=== PATIENT | female | born 1950 | race Caucasian/White ===

== ENCOUNTER 2016-09-18 19:06 | Inpatient (IN) ==
[2016-09-18] MEDS ORDERED: LACTATED RINGERS 1,000 ML IV ONE ×2 (19:17→19:47)
[2016-09-18 19:37] LABS: Basophils % 0.2 % (0.0-0.8); Eosinophils % 0.3 % (0.00-10.9); Hematocrit 29.3 VOL% (35.7-47.0); Hemoglobin 9.5 GM/DL (12.0-16.0); Immature Granulocytes % 0.7 %; Immature Granulocytes Absolute 0.11 #; Lymphocytes # 0.9 10*3/uL (1.4-4.0); Lymphocytes % 5.8 % (21.3-54.2); Mean Corpuscular HGB Conc 32.4 GM/DL (32-36); Mean Corpuscular Hemoglobin 28 PG (27-34); Mean Corpuscular Volume 85.7 FL (87-102); Monocytes # 0.3 10*3/uL (0.11-0.8); Monocytes % 2.1 % (1.7-12.7); Neutrophils # 13.4 10*3/uL (1.4-7.4); Neutrophils % 90.9 % (38.7-73.9); Platelet Count 754 T/CUMM (130-400); Red Blood Count 3.42 MC/CUMM (3.8-5.5); Red Cell Distribution Width 19.4 % (9.3-17.3); White Blood Count 14.8 T/CUMM (4-12)
--- NOTE | 2016-09-18 19:37 | Emergency Department Note ---
Arrival - Arrival Chief Complaint: Altered Mental Status Stated Complaint: AMS ED Nursing Triage Note: Patient to room via ems. Ems was called for altered mental status. Patient's last known well time was at 8am. Patients tried to wake her up at 12 and she just moaned, at 4 she had the right gaze with no speech. Mode of Arrival: Stretcher Time Seen by Provider: 09/18/16 19:14 - History of Present Illness HPI Narrative: Patient's last known well time was 8 AM. She was found by her family around noon and was fairly unresponsive. Thought to be low glucose and treated with oral glucose but patient continued to be unresponsive and was brought to the hospital by EMS. Patient cannot give any history due to her condition. She was recently admitted for urosepsis. Allergies/Adverse Reactions: Allergies Allergy/AdvReac Type Severity Reaction Status Date / Time Zolpidem [From Ambien] AdvReac Intermediate Anxiety/Con Verified 09/18/16 19:18 fusion silk tape AdvReac Intermediate Redness of Uncoded 09/18/16 19:18 Skin Home Medications: Home Medications Medication Instructions Recorded Confirmed Type Sodium Bicarbonate 650 mg PO BID 10/25/14 08/04/16 History Amitriptyline [Elavil] 10 mg PO BEDTIME 08/04/16 08/04/16 History Atorvastatin [Lipitor] 40 mg PO DAILY 08/04/16 08/04/16 History Escitalopram [Lexapro] 20 mg PO DAILY 08/04/16 08/04/16 History HYDROcodone/ACETAMIN 7.5-325 7.5 mg PO Q4HR PRN 08/04/16 08/04/16 History [[place] 7.5-325] levETIRAcetam [Keppra] 500 mg PO BID 08/04/16 08/04/16 History Acetaminophen Tab [Tylenol Tab] 325 mg PO Q4H PRN #0 tablet 08/07/16 Rx Albuterol/Ipratropium Neb [Duoneb] 3 ml RESP TX RT Q6H PRN #0 08/07/16 Rx Budesonide/Formoterol 160-4.5 2 puff INH BID inhaler 08/07/16 Rx [Symbicort 160-4.5] Clotrimazole 1% Cream [Lotrimin 1% 1 applic TOP BID applic 08/07/16 Rx Cream] Dextrose 50% [D50] 12.5 gm IV PRN PRN #0 vial 08/07/16 Rx Dextrose 50% [D50] 25 gm IV PRN PRN #0 vial 08/07/16 Rx Furosemide Tab [Lasix Tab] 20 mg PO BID DIURETIC tablet 08/07/16 Rx Heparin Lock Flush 50 units IV PRN PRN #0 syringe 08/07/16 Rx Insulin Aspart Prot/Asp 70/30 5 unit SUBCUT AC SUPPER unit 08/07/16 Rx [NovoLOG Mix 70/30] Insulin Aspart Prot/Asp 70/30 8 unit SUBCUT AC BREAKFAST unit 08/07/16 Rx [NovoLOG Mix 70/30] Insulin Regular [HumuLIN R] See Protocol SUBCUT ACHS unit 08/07/16 Rx Meropenem [Merrem] 1,000 mg IV Q12H vial 08/07/16 Rx Metoprolol Tartrate Tab [Lopressor 25 mg PO BID tablet 08/07/16 Rx Tab] Micafungin [Mycamine] 100 mg IV Q24H vial 08/07/16 Rx Nitroglycerin Sl Tab [Nitrostat] 0.4 mg SL DIRECTED PRN #0 tablet 08/07/16 Rx Ondansetron Inj [Zofran Inj] 4 mg IV Q4H PRN #0 vial 08/07/16 Rx Pantoprazole Tab [Protonix Tab] 40 mg PO BID tablet 08/07/16 Rx Theophylline ER Cap (24 Hr) 200 mg PO BID W/MEALS capsule 08/07/16 Rx [Adithya-24] Review of System - Review of System Constitutional: Present: as per HPI Eyes: Present: as per HPI Head/Ears/Nose/Throat: Present: see HPI Respiratory: Present: as per HPI Cardiovascular: Present: as per HPI Gastrointestinal: Present: as per HPI Genitourinary female: Present: as per HPI Musculoskeletal: Present: as per HPI Skin: Present: as per HPI Neurological: Present: as per HPI Psychiatric: Present: as per HPI Endocrine: Present: as per HPI Hematological/Lymphatic: Present: as per HPI Allergic/Immunologic: Present: as per HPI Medical,Surgical,& Family Hx - Medical History Cardio: History of: CHF, CAD, Hypertension, PVD, Cardiovascular Problems Psychological: History of: Depression No history of: Psychiatric Problems Neurology: History of: Cerebrovascular Accident No history of: Seizures, Neurological Problems HEENT: No history of: Eye Problem, Dental Problems Endocrine: History of: Diabetes Mellitus (IDDM), Diabetes Mellitus (NIDDM) Rheumatology: No history of;: Rheumatological Problems Respiratory: History of: COPD, Respiratory Problems Renal: History of: Renal Failure (ureteral stricture and hydronephrosis, stent change every 6 months), Renal Problems (CKD stage IV) Genitourinary: History of: Recurring Urinary Tract Infections Gastrointestinal: History of: GERD, GI Problems (ABDOMINAL AORTIC ANEURYSM) No history of: Diverticulitis/ Diverticulosis, Gastrointestinal Bleed, Hepatitis Musculoskeletal: History of: Amputation (LEFT AKA) Hematology: No history of: Blood Disorders Reproductive: No history of: Reproductive Problems Other: History of: Anesthesia Reactions (PT STATES SHE WAS HARD TO AWAKE AND SPENT 15 DAYS IN ICU.) - Surgical History Cardiac Surgeries: Sugical HX of: Cardiac Catheterization, Cardiac Surgery Abdominal Surgeries: Surgical HX of: Abdominal Surgery (vascular bypass surgery) Reproductive Surgeries: Surgical HX of;: Section (X 1), Gynecologic Surgery, Tubal Ligation - Family History Family History: Reports;: Family Cancer, Family Heart Disease - Social History Smoking Status: Smoker, status unknown Frequency of Alcohol Use: None Type of Drug Use: None Exam Vital Signs: Vital Signs Temperature 97.2 F L 09/18/16 19:07 Pulse Rate 74 09/18/16 20:01 Respiratory Rate 18 09/18/16 20:01 Blood Pressure 91/52 09/18/16 20:01 O2 Sat by Pulse Oximetry 99 09/18/16 20:01 - General Exam limited due to: ALOC General appearance: alert, lethargic - Head Head exam: Present: atraumatic - Eye Eye exam: Present: normal appearance, PERRL - ENT ENT exam: Present: normal exam - Neck Neck exam: Present: normal inspection - Chest Chest inspection: Present: normal inspection - Respiratory Respiratory exam: Present: normal lung sounds bilaterally. Absent: accessory muscle use, prolonged expiratory phase - Cardiovascular Cardiovascular exam: Present: regular rate, normal rhythm - Abdominal Exam Abdominal exam: Present: soft, hypoactive bowel sounds. Absent: distention, tenderness, guarding - Rectal Exam Rectal exam: Present: normal inspection. Absent: mass - Female exam ED: Present: deferred - Extremities Exam Extremities exam: Present: normal inspection, other (prior left above knee amputation) - Back Exam Back exam: Present: normal inspection - Skin Skin exam: Present: warm, dry Course Course Narrative: This patient was evaluated with lab work as well as urinalysis and chest x-ray as well as head CT. She had acidosis with urinary tract infection on her urinalysis but her lactic acid was normal. She was discussed with hospitalist who agreed to see her to admit her to the ICU for urosepsis treatment. She did not require intubation in the ER and actually did wake up some with IV fluid administration of antibiotics. Results - Labs CBC & BMP: 09/18/16 19:28 09/18/16 19:28 Disposition Clinical Impression: Sepsis, Urinary tract infection Case discussed with: patient, patient's family Disposition: Still a Patient Condition: Critical Instructions: Sepsis (GEN) Time of Disposition: 20:24
[2016-09-18 19:47] LABS: INR 1.4; PT Patient Result 14.7 SECS; Partial Thromboplastin Time 36.6 SECS (0-40)
[2016-09-18] MEDS ORDERED: VANCOMYCIN INJ 1,000 MG in SODIUM CHLORIDE 0.9% 250 ML IV STA (19:48)
[2016-09-18] MEDS ORDERED: FLUCONAZOLE INJ 200 MG in PREMIX 1 EACH IV ONE (19:48)
--- NOTE | 2016-09-18 19:48 | XRay Report ---
XR chest 1V portable Indication: Altered mental status. Chest one view: Comparison 08/01/2016. Postoperative changes median sternotomy, borderline cardiomegaly and calcified atheromatous disease are stable. Lung volumes are decreased when compared to prior examination with mild central pulmonary vascular crowding and atelectasis. However, no infiltrate or edema shown. Impression: Pulmonary hypoinflation and borderline cardiomegaly. PROCEDURE INTERPRETED AT [facility] DEPARTMENT OF RADIOLOGY Final Report Signed by: Kade Montgomery M.D.
--- NOTE | 2016-09-18 19:54 | CT Report ---
CT head/brain wo con Indication: Altered mental status. CT BRAIN WITHOUT CONTRAST DLP: 998 mGy*cm. One or more of the following dose reduction techniques was used: Automated exposure control, adjustment of the mA and/or kV according the patient size, or use of iterative reconstruction techniques. Comparison: 08/01/2016. Date of admission: 09/18/2016. Technique: Axial noncontrast CT images of the brain were obtained. Findings: No acute hemorrhage, mass or mass effect. Generalized atrophy and patchy periventricular white matter hypodensity is present throughout both convexities. Old infarct left occipital lobe is stable. Cortical araujo-white junction and structures of the basal ganglia are well-defined. No bone lesions are shown. Internal auditory canals are symmetric. Visualized sinuses and mastoid air cells are clear. Impression: No acute intracranial pathology. Generalized atrophy and changes consistent with microvascular disease. Old left occipital infarct, stable. PROCEDURE INTERPRETED AT [facility] DEPARTMENT OF RADIOLOGY Final Report Signed by: Kade Montgomery M.D.
[2016-09-18 19:59] LABS: Apearance,Urine CLOUDY (Clear); Bacteria,Urine Few /HPF (Few); Bilirubin,Urine Negative (Negative); Blood, Urine Moderate mg/dL (Negative); Glucose,Urine (UA) Negative (Negative); Ketones,Urine Negative (Negative); Nitrite,Urine Negative (Negative); Protein,Urine 30 MG/DL; RBC,Urine 90 /HPF (0-4); Renal Epithelial Cells,Urine Occasional /HPF (<1); Squamous Epithelial Cell,Urine Occasional /HPF (0-10); Urine Color Yellow (Yellow); Urine Specific Gravity 1.004 (1.001-1.035); Urine Urobilinogen < 2.0 EU/DL (0.2-1.0); WBC,Urine 482 /HPF (0-6)
[2016-09-18 20:05] LABS: Alanine Aminotransferase < 6 U/L (13-56); Albumin 1.4 G/DL (3.4-5.0); Alkaline Phosphatase 177 U/L (45-117); Aspartate Amino Transferase 13 U/L (0-37); Bilirubin,Total < 0.39 MG/DL (0.2-1.0); Blood Urea Nitrogen 52 MG/DL (7-18); Glucose 130 MG/DL (74-106); Osmolality,Calculated 311.1 MOS/KG (273-304); Sodium 149 MMOL/L (136-145); Total Protein 5.6 G/DL (6.4-8.3)
[2016-09-18 20:08] LABS: Calcium 5.1 MG/DL (8.5-10.1); Potassium 1.9 MMOL/L (3.5-5.1)
[2016-09-18 20:09] LABS: Lactic Acid 1.2 MMOL/L (0.4-2.0)
[2016-09-18] MEDS ORDERED: CALCIUM GLUCONATE 2,000 MG in SODIUM CHLORIDE 0.9% 100 ML IV ONE (20:12)
[2016-09-18 20:13] LABS: Troponin I Only 0.045 NG/ML (0.00-0.045)
[2016-09-18 20:15] LABS: Lymphocytes 7 % (20-55); Segmented Neutrophils 91 % (50-85); Total Cells Counted 100
[2016-09-18 20:16] LABS: ABG Base Excess -9.4 MMOL/L (-2.5-2.5); ABG HCO3 15.5 MMOL/L (20-26); ABG Oxygen Saturation 97.4 % (95-100); ABG PH 7.331 (7.35-7.45); ABG PO2 125.4 MM HG (80-95); ABG TCO2 16.4 MMOL/L (23-27); Allen Test Positive
[2016-09-18 20:16] LABS: Burr Cells Few; Ovalocytes Few; Platelet Estimate Increased; Poikilocytosis 1+; Tear Drop Cells Slight
[2016-09-18] MEDS ORDERED: VANCOMYCIN 1,000 MG VIAL ONE (20:17)
[2016-09-18] MEDS ORDERED: POTASSIUM CHLORIDE RIDER 100 ML IV ONE (20:17)
[2016-09-18 20:20] LABS: Ammonia 27 UMOL/L (11-32)
[2016-09-18] MEDS: POTASSIUM CHLORIDE RIDER 10 MEQ in PREMIX 1 EACH IV SCH ×3 (20:33→23:39)
--- NOTE | 2016-09-18 20:54 | Event Note ---
Preoperative diagnosis Hypotension with inadequate venous access Postoperative diagnosis Same Procedures performed Right internal jugular central line placement Ultrasound guidance and interpretation of images Findings The right internal jugular vein was compressible and was accessed on first stick with venous nonpulsatile blood return. Wire placement was confirmed with ultrasound and the vein was accessed under ultrasound guidance. The catheter was placed at 15 centimeters at the skin level. Complications None apparent Specimen None Anesthesia Local 10 cc lidocaine Indication Hypotension with inadequate venous access Description of procedure The patient was placed in supine position in his ICU bed. The neck was prepped with chlorhexidine and draped sterilely. Timeout was called. Ultrasound was used to identify the vascular structures in the right neck. The jugular vein is compressible. Local anesthetic was administered under ultrasound guidance. The vein was accessed with a needle on the first attempt under ultrasound guidance. Venous nonpulsatile blood return was obtained. A wire was passed easily into the venous system and placement was confirmed again with ultrasound. A skin incision was made alongside the wire and the dilator was placed over the wire. Seldinger technique was used to place a triple-lumen catheter and it was threaded over the wire up to 15 centimeters at the skin. The catheter was sewn in place at this location. All 3 lm returned blood easily and were flushed with saline. The catheter was sewn in place with 3-0 silk sutures in a Biopatch sterile dressing was placed with Tegaderm. Postoperative plan Chest x-ray
--- NOTE | 2016-09-18 21:06 | Hospitalist History & Physical ---
Assessment and Plan (1) Severe sepsis Status: Acute Assessment and plan: The patient presents with unresponsiveness acute on chronic kidney injury obvious urinary tract infection. I believe bacteremia or funguria associated with urinary tract infection is a possibility. Patient is hypotensive and will be admitted to the intensive care unit. Currently she is receiving some lingers lactate for isotonic buffered fluid resuscitation. Will respond to the blood pressure response to this. Blood pressure does not go up then pressors will be started. Patient is being admitted to the intensive care unit. Current Visit: Yes (2) Hyperosmolar non-ketotic state in patient with type 2 diabetes mellitus Status: Acute Assessment and plan: After receiving isotonic fluids patient will be switched to free water infusion with quarter normal saline for the next 18 hours around the fluid at 120 mL/h. Because this was started after blood pressure stabilized. Will discontinue lactated Ringer's at that point. Patient is a diabetic I believe we cannot use D5W based fluid optimally without causing hypoglycemia. Current Visit: Yes (3) Kicig-bi-cwkvmqk kidney injury Status: Acute Assessment and plan: This could be related to the acute infection but also acute tubular necrosis given hypotension. She does look a little bit dehydrated. Coronary consultation with nephrology to evaluate and recommend on this issue. Repeat BMP and magnesium in the morning. Current Visit: Yes (4) Urinary tract infection Status: Chronic Current Visit: Yes (5) Hypokalemia Status: Acute Assessment and plan: Supplement potassium per protocol using IV potassium chloride. Repeat BMP and magnesium tomorrow. Current Visit: No (6) Septic shock Status: Acute Assessment and plan: Patient is started on antibiotics empirically. Because of prior history of staphylococcal urinary tract infection patient will be given vancomycin 1. Check vancomycin random levels tomorrow. Also put the patient on meropenem 500 mg IV every 12 hours. Because of prior fungal infections patient should be put on fluconazole 1 as already ordered in the emergency room but subsequently put the patient on micafungin 100 mg IV every 24 hours; follow blood culture reports. Good consultation with infectious disease to see the patient in the morning. Lactic acid has been ordered. If elevated will have to repeat a level 6 hours later. Current Visit: Yes History of Present Illness Chief complaint: Unresponsive History of present illness: Ms. Flores is a 66 year old female brought to the emergency room unresponsive after being found by her family around noon. The thought to patient had a low glucose and give her some oral glucose without any response. Last time family noted to be okay was around 8:00 in the morning today. No history of trauma has history of amputation of left lower extremity history of prior sepsis starting about December of last year through the early part of this year. In December she did have methicillin sensitive staph aureus in the urine as well as Edilma tropicalis. Her urine looks quite pyuric today. Specimen has been sent to the laboratory for culture and urinalysis. Unfortunately Gram stain cannot be obtained at this time. Patient cannot given a history daughter-in- law at the bedside does not know much about her; I am informed that the patient does have a daughter who is a nurse. Patient lives at home not certain to me if there is home health involved in her care. She is a diabetic on insulin dose does take Keppra suggesting that she does have history of seizures as mentioned that she was on Mycamine at one point in July of note is certain if this medication was been continued through now. Home Medications Medication Instructions Recorded Confirmed Type Sodium Bicarbonate 650 mg PO BID 10/25/14 08/04/16 History Amitriptyline [Elavil] 10 mg PO BEDTIME 08/04/16 08/04/16 History Atorvastatin [Lipitor] 40 mg PO DAILY 08/04/16 08/04/16 History Escitalopram [Lexapro] 20 mg PO DAILY 08/04/16 08/04/16 History HYDROcodone/ACETAMIN 7.5-325 7.5 mg PO Q4HR PRN 08/04/16 08/04/16 History [[place] 7.5-325] levETIRAcetam [Keppra] 500 mg PO BID 08/04/16 08/04/16 History Acetaminophen Tab [Tylenol Tab] 325 mg PO Q4H PRN #0 tablet 08/07/16 Rx Albuterol/Ipratropium Neb [Duoneb] 3 ml RESP TX RT Q6H PRN #0 08/07/16 Rx Budesonide/Formoterol 160-4.5 2 puff INH BID inhaler 08/07/16 Rx [Symbicort 160-4.5] Clotrimazole 1% Cream [Lotrimin 1% 1 applic TOP BID applic 08/07/16 Rx Cream] Dextrose 50% [D50] 12.5 gm IV PRN PRN #0 vial 08/07/16 Rx Dextrose 50% [D50] 25 gm IV PRN PRN #0 vial 08/07/16 Rx Furosemide Tab [Lasix Tab] 20 mg PO BID DIURETIC tablet 08/07/16 Rx Heparin Lock Flush 50 units IV PRN PRN #0 syringe 08/07/16 Rx Insulin Aspart Prot/Asp 70/30 5 unit SUBCUT AC SUPPER unit 08/07/16 Rx [NovoLOG Mix 70/30] Insulin Aspart Prot/Asp 70/30 8 unit SUBCUT AC BREAKFAST unit 08/07/16 Rx [NovoLOG Mix 70/30] Insulin Regular [HumuLIN R] See Protocol SUBCUT ACHS unit 08/07/16 Rx Meropenem [Merrem] 1,000 mg IV Q12H vial 08/07/16 Rx Metoprolol Tartrate Tab [Lopressor 25 mg PO BID tablet 08/07/16 Rx Tab] Micafungin [Mycamine] 100 mg IV Q24H vial 08/07/16 Rx Nitroglycerin Sl Tab [Nitrostat] 0.4 mg SL DIRECTED PRN #0 tablet 08/07/16 Rx Ondansetron Inj [Zofran Inj] 4 mg IV Q4H PRN #0 vial 08/07/16 Rx Pantoprazole Tab [Protonix Tab] 40 mg PO BID tablet 08/07/16 Rx Theophylline ER Cap (24 Hr) 200 mg PO BID W/MEALS capsule 08/07/16 Rx [Adithya-24] Allergies Allergy/AdvReac Type Severity Reaction Status Date / Time Zolpidem [From Ambien] AdvReac Intermediate Anxiety/Con Verified 09/18/16 19:18 fusion silk tape AdvReac Intermediate Redness of Uncoded 09/18/16 19:18 Skin Medical,Surgical,& Family Hx - Medical History Cardio: History of: CHF, CAD, Hypertension, PVD, Cardiovascular Problems Psychological: History of: Depression No history of: Psychiatric Problems Neurology: History of: Cerebrovascular Accident No history of: Seizures, Neurological Problems HEENT: No history of: Eye Problem, Dental Problems Endocrine: History of: Diabetes Mellitus (IDDM), Diabetes Mellitus (NIDDM) Rheumatology: No history of;: Rheumatological Problems Respiratory: History of: COPD, Respiratory Problems Renal: History of: Renal Failure (ureteral stricture and hydronephrosis, stent change every 6 months), Renal Problems (CKD stage IV) Genitourinary: History of: Recurring Urinary Tract Infections Gastrointestinal: History of: GERD, GI Problems (ABDOMINAL AORTIC ANEURYSM) No history of: Diverticulitis/ Diverticulosis, Gastrointestinal Bleed, Hepatitis Musculoskeletal: History of: Amputation (LEFT AKA) Hematology: No history of: Blood Disorders Reproductive: No history of: Reproductive Problems Other: History of: Anesthesia Reactions (PT STATES SHE WAS HARD TO AWAKE AND SPENT 15 DAYS IN ICU.) - Surgical History Cardiac Surgeries: Sugical HX of: Cardiac Catheterization, Cardiac Surgery Abdominal Surgeries: Surgical HX of: Abdominal Surgery (vascular bypass surgery) Reproductive Surgeries: Surgical HX of;: Section (X 1), Gynecologic Surgery, Tubal Ligation - Family History Family History: Reports;: Family Cancer, Family Heart Disease - Social History Smoking Status: Smoker, status unknown Frequency of Alcohol Use: None Type of Drug Use: None ROS unobtainable: other (Patient is totally unresponsive) Review of systems: 12 system assessment by inspection was done. Significant for the chief complaint history of presenting illness and past medical history. Exam - Constitutional Vitals: Period Temp Pulse Resp BP Sys/Faith Pulse Ox Last 24 Hr 97.2 F-97.2 F 69-91 16-20 85-93/39-58 98-100 General appearance: over weight - Head Head exam: Present: normocephalic, atraumatic - Eye Eye exam: Present: other (Patient is totally unresponsive/comatose) Pupils: Present: ANUSHA - ENT ENT exam: Present: normal exam, other (No oral lesions) - Neck Neck exam: Present: other (Neck is supple midline trachea no adenopathy no JVD) - Respiratory Respiratory exam: Present: other (Patient has spontaneous respirations poor inspiratory force but I can hear lungs on both sides) - Cardiovascular Cardiovascular exam: Present: regular rate and rhythm, other (EKG was sinus control rate about 83 beats a minute preserved MA interval nonspecific ST-T abnormality she does have P-mitrale) - GI/Abdominal GI/Abdominal exam: Present: normal bowel sounds, soft - Extremities Exam Extremities exam: Present: other (Patient cannot move she does have an AKA on the left side will not respond to commands) - Neurological Exam Neurological exam: Present: other (Patient is unresponsive I cannot assess neurologic modalities effectively) - Psychiatric Psychiatric exam: Present: other (Unresponsive) - Skin Skin exam: Present: normal color, warm, dry Results - Labs CBC & BMP: 09/18/16 19:28 09/18/16 19:28 Lab Results: I have reviewed the past 24 hour labs (Noted profound hypokalemia leukocytosis creatinine of 4.6 hyponatremia 149 glucose of 130 obviously hyperosmolar with a BUN of 52)
--- NOTE | 2016-09-18 21:34 | Ultrasound Report ---
US renal Bilateral Indication: Edilma in urine. Ultrasound kidneys: Grayscale and color Doppler imaging of both kidneys obtained. Both kidneys demonstrate severe hydronephrosis which represents a progression from the moderate hydronephrosis present on 07/25/2016. Right kidney is 124 x 72 x 69 mm. There is a 13 x 17 x 12 mm cyst at the upper pole. Left kidney is 150 x 74 x 82 mm. Color Doppler flow both renal luis fernando noted. Impression: Since 07/25/2016, worsening bilateral hydronephrosis. PROCEDURE INTERPRETED AT [facility] DEPARTMENT OF RADIOLOGY Final Report Signed by: Kade Montgomery M.D.
--- NOTE | 2016-09-18 21:35 | XRay Report ---
XR chest 1V portable Indication: Central line placement. Chest one view: Comparison 09/18/2016 shows a new right IJ central line, tip at the RA-SVC junction. Cardiomegaly, postoperative changes median sternotomy and pulmonary hypoinflation are stable. No pneumothorax. Impression: Adequate placement of central line. PROCEDURE INTERPRETED AT [facility] DEPARTMENT OF RADIOLOGY Final Report Signed by: Kade Montgomery M.D.
[2016-09-18] MEDS ORDERED: DEXTROSE 50% 25 GM/50 ML VIAL IV PRN (21:59)
[2016-09-18] MEDS ORDERED: GLUCAGON 1 MG VIAL IM PRN (21:59)
[2016-09-18] MEDS ORDERED: SODIUM CHLORIDE 23.4% CONC INJ 38.5 MEQ in STERILE WATER INJ 1,000 ML IV SCH (22:00)
[2016-09-18] MEDS: DEXTROSE 5% NACL 0.22% 1,000 ML IV SCH (22:23)
[2016-09-18] MEDS: MEROPENEM 500 MG in SODIUM CHLORIDE 0.9% 100 ML IV SCH (22:31)
[2016-09-18 22:37] LABS: Basophils % 0.1 % (0.0-0.8); Eosinophils % 0.1 % (0.00-10.9); Hematocrit 24.6 VOL% (35.7-47.0); Hemoglobin 8.1 GM/DL (12.0-16.0); Immature Granulocytes Absolute 0.16 #; Lymphocytes # 1.3 10*3/uL (1.4-4.0); Lymphocytes % 8.4 % (21.3-54.2); Mean Corpuscular HGB Conc 32.9 GM/DL (32-36); Mean Corpuscular Hemoglobin 28 PG (27-34); Mean Corpuscular Volume 85.1 FL (87-102); Mean Platelet Volume 8.9 FL (9.6-12.0); Monocytes # 0.2 10*3/uL (0.11-0.8); Monocytes % 1.4 % (1.7-12.7); Neutrophils # 13.7 10*3/uL (1.4-7.4); Platelet Count 637 T/CUMM (130-400); Red Blood Count 2.89 MC/CUMM (3.8-5.5); Red Cell Distribution Width 19.4 % (9.3-17.3); White Blood Count 15.4 T/CUMM (4-12)
[2016-09-18] MEDS: NOREPINEPHRINE 8 MG in SODIUM CHLORIDE 0.9% 242 ML IV SCH (23:07)
[2016-09-18 23:08] LABS: Magnesium 0.8 MG/DL (1.8-2.4); Osmolality,Calculated 304.3 MOS/KG (273-304)
[2016-09-18 23:10] LABS: Calcium 5.7 MG/DL (8.5-10.1); Potassium 2.3 MMOL/L (3.5-5.1)
[2016-09-18] MEDS ORDERED: POTASSIUM CHLORIDE RIDER 20 MEQ in PREMIX 1 EACH IV PRN (23:29)
[2016-09-18 23:46] LABS: Lymphocytes 4 % (20-55); Platelet Estimate Increased; Segmented Neutrophils 94 % (50-85); Total Cells Counted 100
[2016-09-18 23:54] LABS: Hypochromasia 1+; Microcytosis 2+
[2016-09-18 23:55] LABS: Burr Cells Slight
[2016-09-19] MEDS: POTASSIUM CHLORIDE RIDER 10 MEQ in PREMIX 1 EACH IV SCH ×3 (00:40→02:27)
[2016-09-19 04:30] LABS: Basophils % 0.1 % (0.0-0.8); Eosinophils % 0.1 % (0.00-10.9); Hematocrit 22.9 VOL% (35.7-47.0); Hemoglobin 7.4 GM/DL (12.0-16.0); Immature Granulocytes % 0.8 %; Immature Granulocytes Absolute 0.11 #; Lymphocytes # 1.8 10*3/uL (1.4-4.0); Lymphocytes % 12.2 % (21.3-54.2); Mean Corpuscular HGB Conc 32.3 GM/DL (32-36); Mean Corpuscular Hemoglobin 28 PG (27-34); Mean Corpuscular Volume 86.7 FL (87-102); Monocytes # 0.6 10*3/uL (0.11-0.8); Monocytes % 3.9 % (1.7-12.7); Neutrophils # 11.8 10*3/uL (1.4-7.4); Neutrophils % 82.9 % (38.7-73.9); Platelet Count 558 T/CUMM (130-400); Red Blood Count 2.64 MC/CUMM (3.8-5.5); Red Cell Distribution Width 19.4 % (9.3-17.3); White Blood Count 14.3 T/CUMM (4-12)
[2016-09-19 05:02] LABS: Hypochromasia 1+; Lymphocytes 11 % (20-55); Microcytosis 1+; Platelet Estimate Increased; Segmented Neutrophils 84 % (50-85); Total Cells Counted 100
[2016-09-19 05:03] LABS: Burr Cells Few
[2016-09-19 05:29] LABS: Osmolality,Calculated 304.7 MOS/KG (273-304); Potassium 2.7 MMOL/L (3.5-5.1)
[2016-09-19 05:31] LABS: Calcium 5.5 MG/DL (8.5-10.1)
[2016-09-19] MEDS: DEXTROSE 5% NACL 0.22% 1,000 ML IV SCH (06:16)
[2016-09-19] MEDS ORDERED: POTASSIUM CHLORIDE RIDER 10 MEQ in PREMIX 1 EACH IV PRN ×2 (06:29→06:36)
[2016-09-19] MEDS ORDERED: POTASSIUM CHLORIDE RIDER 20 MEQ in PREMIX 1 EACH IV ONE (06:29)
--- NOTE | 2016-09-19 06:35 | EKG Report ---
Stationary ECG Study [facility] ER Test Date: 09/18/2016 7:17:55 PM Pat Name: SUSAN EVANS Department: Room: 124 Gender: F [employer] Installer: : 1950 Requested by: Vinny Davis Order Number: [id number] Reading MD: JIMMY LEWIS Intervals [place] Rate: 83 P: -29 CT: 142 QRS: 18 QRSD: 104 T: 35 QT: 350 QTc: 389 Interpretive Statements SINUS RHYTHM WITH OCCASIONAL SUPRAVENTRICULAR PREMATURE COMPLEXES NONSPECIFIC RIGHT VENTRICULAR CONDUCTION DELAY Electronically Signed On 09-19-16 20:44:41 CDT by JIMMY LEWIS [email or web address]
[2016-09-19] MEDS: POTASSIUM CHLORIDE RIDER 20 MEQ in PREMIX 1 EACH IV PRN ×2 (06:44→22:20)
[2016-09-19] MEDS ORDERED: CALCIUM GLUCONATE 2,000 MG in SODIUM CHLORIDE 0.9% 100 ML IV ONE (07:00)
[2016-09-19] MEDS ORDERED: SODIUM CHLORIDE 0.9% 250 ML IV PRN (08:29)
[2016-09-19] MEDS ORDERED: MAGNESIUM SULF RIDER 2 GM in PREMIX 1 EACH IV ONE (09:00)
[2016-09-19] MEDS ORDERED: CLOTRIMAZOLE/BETAMETHASONE LOTION 30 ML BOTTLE TOP SCH (09:00)
[2016-09-19] MEDS: MEROPENEM 500 MG in SODIUM CHLORIDE 0.9% 100 ML IV SCH ×2 (09:01→21:49)
[2016-09-19] MEDS: SODIUM CHLORIDE 0.45% 1,000 ML IV SCH ×2 (09:05→18:34)
--- NOTE | 2016-09-19 10:59 | Infectious Disease Consult ---
Assessment and Plan (1) Diarrhea Status: Acute Assessment and plan: She has been in and out of hospital for the past several months on antibiotic therapy and I am concerned about the possibility of C. difficile. Recommendations: Check stool for C. difficile toxin 3 samples. Current Visit: Yes (2) Candidal intertrigo Status: Acute Assessment and plan: This is quite severe Edilma intertrigo again due to her extensive antibiotic exposure over the past several months. Recommendations: 1. Instead of clotrimazole with betamethasone, I am going to give a straight clotrimazole cream 2. She is already on micafungin because of past history of Edilma tropicalis complicated UTI; we will leave this on follow-up cultures on the urine. De- escalate to fluconazole if able. Current Visit: Yes (3) [id number] kidney injury Status: Acute Assessment and plan: Probably multifactorial including worsening hydronephrosis and also dehydration from the diarrhea. Current Visit: Yes (4) Septic shock Status: Acute Assessment and plan: She is hypotensive and its could be very well from sepsis given leukocytosis and probable urinary tract infection. There is also the possibility of C. difficile infection. Alternatively the hypotension could be from volume depletion related to her prolonged diarrhea. Recommendations: Continue current empiric antibiotic therapy and follow-up pending culture results. Thank you very much for the consult. Will follow. Current Visit: Yes (5) Urinary tract infection Status: Chronic Assessment and plan: She has significant pyuria but urine culture negative to date. 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 If Edilma tropicalis is isolated again I am going to have lab do susceptibility testing to see if we can get her on fluconazole. Current Visit: Yes (6) Uropathy, obstructive Status: Acute Assessment and plan: She has worsening hydronephrosis. No stents present at the moment. She may end up on dialysis soon. Current Visit: No (7) Diabetes mellitus Status: Chronic Current Visit: No Qualifiers: Diabetes mellitus type: type 2 Diabetes mellitus complication status: with kidney complications (8) Hypertension Status: Chronic Current Visit: No Qualifiers: Hypertension type: essential hypertension Qualified Code(s): I10 - Essential (primary) hypertension History of Present Illness Chief complaint: Severe sepsis History of present illness: History was obtained from reviewing her extensive records as the patient is a very poor historian. Ms. Flores is a 66 year old female, With multiple comorbidities including diabetes, chronic renal failure, bilateral ureteric strictures with history of stents in situ because of hydronephrosis. She was in hospital about a month ago with DKA and sepsis felt to be due to urinary tract infection. Edilma tropicalis was cultured. She was treated with micafungin and at the time she had the stents removed. The patient decided to not have the stents replaced and instead accepted the fact that she was probably going to end up on dialysis. After she completed IV micafungin at specialty she was sent home and apparently was doing relatively okay but yesterday she was found unresponsive at home at about midday and her blood sugar was about 30. The only history the patient was able to give me today is that she has been having diarrhea for the past month. The patient was hypotensive on presentation requiring admission to ICU for vasopressors. She has not been having such severe diarrhea according to the nurse but stool is quite soft. She has not been having fever but has significant leukocytosis and I am asked to assist with management. Home Medications Medication Instructions Recorded Confirmed Type Sodium Bicarbonate 650 mg PO BID 10/25/14 08/04/16 History Amitriptyline [Elavil] 10 mg PO BEDTIME 08/04/16 08/04/16 History Atorvastatin [Lipitor] 40 mg PO DAILY 08/04/16 08/04/16 History Escitalopram [Lexapro] 20 mg PO DAILY 08/04/16 08/04/16 History HYDROcodone/ACETAMIN 7.5-325 7.5 mg PO Q4HR PRN 08/04/16 08/04/16 History [[place] 7.5-325] levETIRAcetam [Keppra] 500 mg PO BID 08/04/16 08/04/16 History Acetaminophen Tab [Tylenol Tab] 325 mg PO Q4H PRN #0 tablet 08/07/16 Rx Albuterol/Ipratropium Neb [Duoneb] 3 ml RESP TX RT Q6H PRN #0 08/07/16 Rx Budesonide/Formoterol 160-4.5 2 puff INH BID inhaler 08/07/16 Rx [Symbicort 160-4.5] Clotrimazole 1% Cream [Lotrimin 1% 1 applic TOP BID applic 08/07/16 Rx Cream] Dextrose 50% [D50] 12.5 gm IV PRN PRN #0 vial 08/07/16 Rx Dextrose 50% [D50] 25 gm IV PRN PRN #0 vial 08/07/16 Rx Furosemide Tab [Lasix Tab] 20 mg PO BID DIURETIC tablet 08/07/16 Rx Heparin Lock Flush 50 units IV PRN PRN #0 syringe 08/07/16 Rx Insulin Aspart Prot/Asp 70/30 5 unit SUBCUT AC SUPPER unit 08/07/16 Rx [NovoLOG Mix 70/30] Insulin Aspart Prot/Asp 70/30 8 unit SUBCUT AC BREAKFAST unit 08/07/16 Rx [NovoLOG Mix 70/30] Insulin Regular [HumuLIN R] See Protocol SUBCUT ACHS unit 08/07/16 Rx Meropenem [Merrem] 1,000 mg IV Q12H vial 08/07/16 Rx Metoprolol Tartrate Tab [Lopressor 25 mg PO BID tablet 08/07/16 Rx Tab] Micafungin [Mycamine] 100 mg IV Q24H vial 08/07/16 Rx Nitroglycerin Sl Tab [Nitrostat] 0.4 mg SL DIRECTED PRN #0 tablet 08/07/16 Rx Ondansetron Inj [Zofran Inj] 4 mg IV Q4H PRN #0 vial 08/07/16 Rx Pantoprazole Tab [Protonix Tab] 40 mg PO BID tablet 08/07/16 Rx Theophylline ER Cap (24 Hr) 200 mg PO BID W/MEALS capsule 08/07/16 Rx [Adithya-24] Allergies Allergy/AdvReac Type Severity Reaction Status Date / Time Zolpidem [From Ambien] AdvReac Intermediate Anxiety/Con Verified 09/18/16 19:18 fusion silk tape AdvReac Intermediate Redness of Uncoded 09/18/16 19:18 Skin ROS unobtainable: due to mental status Medical,Surgical,& Family Hx - Medical History Cardio: History of: CHF, CAD, Hypertension, PVD, Cardiovascular Problems Psychological: History of: Depression No history of: Psychiatric Problems Neurology: History of: Cerebrovascular Accident, Seizures No history of: Neurological Problems HEENT: History of: Dental Problems (Dentures) No history of: Eye Problem Endocrine: History of: Diabetes Mellitus (IDDM), Diabetes Mellitus (NIDDM) Rheumatology: No history of;: Rheumatological Problems Respiratory: History of: COPD, Respiratory Problems Renal: History of: Renal Failure (ureteral stricture and hydronephrosis, stent change every 6 months), Renal Problems (CKD stage IV, One Kidney) Genitourinary: History of: Recurring Urinary Tract Infections Gastrointestinal: History of: GERD, GI Problems (ABDOMINAL AORTIC ANEURYSM) No history of: Diverticulitis/ Diverticulosis, Gastrointestinal Bleed, Hepatitis Musculoskeletal: History of: Amputation (LEFT AKA) Hematology: No history of: Blood Disorders Reproductive: No history of: Reproductive Problems Other: History of: Anesthesia Reactions (PT STATES SHE WAS HARD TO AWAKE AND SPENT 15 DAYS IN ICU.) - Surgical History Cardiac Surgeries: Sugical HX of: Cardiac Catheterization, Cardiac Surgery Thoracic Surgeries: Surgical HX of;: Kidney (Renal Surgery) (One Kidney) Abdominal Surgeries: Surgical HX of: Abdominal Surgery (vascular bypass surgery) Reproductive Surgeries: Surgical HX of;: Section (X 1), Gynecologic Surgery, Tubal Ligation - Family History Family History: Reports;: Family Cancer (Mother (Breast)), Family Diabetes ( Sister, Brother), Family Heart Disease (Mother, Brother, Sister), Family Hypertension (Sister, Brother, Mother) Denies;: Family Anesthesia Reaction, Family Hematology, Family Psychiatric Problems, Family Stroke, Additional Family History - Social History Smoking Status: Former smoker Frequency of Alcohol Use: None Type of Drug Use: None Infectious Disease Exam H&P - Constitutional Vitals: Vital Signs Temp Pulse Resp BP Pulse Ox 97.9 F 89 20 96/50 98 09/19/16 07:00 09/19/16 10:00 09/19/16 10:00 09/19/16 10:00 09/19/16 10:00 Intake and Output 09/18/16 09/19/16 09/19/16 23:59 07:59 15:59 Intake Total 525 / 525 1551 / 1551 520 / 520 Output Total 375 / 375 470 / 470 220 / 220 Balance 150 / 150 1081 / 1081 300 / 300 Intake: IV 525 / 525 1531 / 1531 400 / 400 Calcium Gluconate 1,000 120 / 120 120 / 120 mg/10 ml In Ns 100 ml @ 200 mls/hr IV ONCE ONE Rx #:[id number] D5 1/4Ns 1,000 ml @ 125 1000 / 1000 300 / 300 mls/hr IV .Q8H MARCK Rx#: [id number] Diflucan Inj 200 mg In 100 / 100 Premix 1 Each @ 100 mls/ hr IV ONCE ONE Rx#: [id number] Merrem 500 mg In Ns 100 100 / 100 ml @ 200 mls/hr IV Q12H MARCK Rx#:[id number] Levophed 8 mg In Ns 242 5 / 5 11 / 11 ml @ 5 MCG/MIN 9.37 mls/ hr IV TITRATE MARCK Rx#: [id number] Potassium Chloride Al[place]zo 200 / 200 400 / 400 10 Meq/100 ml In Premix 1 Each @ 100 mls/hr IV Q1H MARCK Rx#:[id number] Potassium Chloride [place] 100 / 100 20 Meq/100 ml In Premix 1 Each @ 50 mls/hr IV .PER PROTOCOL PRN Rx#: [id number] Oral 20 / 20 120 / 120 Output: Urine 75 / 75 470 / 470 220 / 220 Post Void Residual Amount 300 / 300 Uretheral (Lopez) 300 / 300 Other: Voiding Method Indwelling Catheter Indwelling Catheter Indwelling Catheter # Bowel Movements 1 1 1 Weight 60.4 kg 60.328 kg Patient Weight 09/19/16 23:59 Weight 60.328 kg Exam: General: Patient ill-looking HEENT: Mucous membranes pale pink and dry, anicteric acyanotic, ANUSHA, no oropharyngeal exudates but mouth very dry Neck: Supple, no thyroid gland enlargement, no lymphadenopathy Respiratory system: Breath sounds vesicular, no crepitations or wheezes Cardiovascular: Normal S1 and S2, no murmurs appreciated Abdomen: Normal bowel sounds, soft nontender throughout, no organomegaly or mass Genitourinary: No suprapubic pain or bladder distention Extremities: no edema Skin: Extensive erythematous somewhat exfoliating rash in intertriginous regions , that is under her breasts and in the groin creases Reports - Labs CBC & BMP: 09/19/16 04:10 09/19/16 04:10 Labs: Laboratory Results - last 24 hr 09/18/16 09/18/16 09/18/16 19:28 19:28 19:28 WBC 14.8 H RBC 3.42 L Hgb 9.5 L Hct 29.3 L MCV 85.7 L MCH 28 MCHC 32.4 RDW 19.4 H Plt Count 754 H MPV 9.0 L Neut % (Auto) 90.9 H Lymph % (Auto) 5.8 L [place] % (Auto) 2.1 Eos % (Auto) 0.3 Baso % (Auto) 0.2 Neut # (Auto) 13.4 H Lymph # (Auto) 0.9 L [place] # (Auto) 0.3 Eos # (Auto) 0.0 Baso # (Auto) 0.0 Total Counted 100 Immature Gran % 0.7 Nucleated RBC % 0.0 Immature Gran # 0.11 Segmented Neutrophils 91 H Lymphocytes 7 L Monocytes 2 Nucleated RBCs # 0.00 Platelet Estimate Increased Hypochromasia Poikilocytosis 1+ Microcytosis Tear Drop Cells Slight Ovalocytes Few [place] Cells Few Morphology Comment INR PT Patient/Control Mix Circ Anticoag PTT ABG pH ABG pCO2 ABG pO2 ABG HCO3 ABG Total CO2 ABG O2 Saturation ABG Base Excess FiO2 Sodium 149 H Potassium 1.9 L* Chloride 114 H Carbon Dioxide 16 L Anion Gap 20.9 H BUN 52 H Creatinine 4.60 H GFR Calculation 11 BUN/Creatinine Ratio 11.00 Glucose 130 H POC Glucose Calculated Osmolality 311.1 H Lactic Acid 1.2 Calcium 5.1 L* Magnesium Total Bilirubin < 0.39 AST 13 ALT < 6 L Alkaline Phosphatase 177 H Ammonia 27 Total Creatine Kinase CK-MB (CK-2) Troponin I Total Protein 5.6 L Albumin 1.4 L Globulin 4.2 H Albumin/Globulin Ratio 0.3 L Lipase 64.0 L Urine Color Yellow Urine Appearance Cloudy Urine pH 5.0 Ur Specific [place] 1.004 Urine Protein 30 Urine Glucose (UA) Negative Urine Ketones Negative Urine Blood Moderate Urine Nitrate Negative Urine Bilirubin Negative Urine Urobilinogen < 2.0 H Urine Leukocytes Large H Urine RBC 90 Urine WBC 482 Ur Squamous Epith Cells Occasional Ur Renal Epithelial Cell Occasional Urine Bacteria Few Ur Culture Indicated? Results to follow Random Vancomycin 09/18/16 09/18/16 09/18/16 19:28 19:28 20:06 WBC RBC Hgb Hct MCV MCH MCHC RDW Plt Count MPV Neut % (Auto) Lymph % (Auto) [place] % (Auto) Eos % (Auto) Baso % (Auto) Neut # (Auto) Lymph # (Auto) [place] # (Auto) Eos # (Auto) Baso # (Auto) Total Counted Immature Gran % Nucleated RBC % Immature Gran # Segmented Neutrophils Lymphocytes Monocytes Nucleated RBCs # Platelet Estimate Hypochromasia Poikilocytosis Microcytosis Tear Drop Cells Ovalocytes [place] Cells Morphology Comment INR 1.4 PT Patient/Control Mix 14.7 D Circ Anticoag PTT 36.6 ABG pH 7.331 L ABG pCO2 30.0 L ABG pO2 125.4 H ABG HCO3 15.5 L ABG Total CO2 16.4 L ABG O2 Saturation 97.4 ABG Base Excess -9.4 L FiO2 28.00 Sodium Potassium Chloride Carbon Dioxide Anion Gap BUN Creatinine GFR Calculation BUN/Creatinine Ratio Glucose POC Glucose Calculated Osmolality Lactic Acid Calcium Magnesium Total Bilirubin AST ALT Alkaline Phosphatase Ammonia Total Creatine Kinase 74 CK-MB (CK-2) 2.1 Troponin I 0.045 Total Protein Albumin Globulin Albumin/Globulin Ratio Lipase Urine Color Urine Appearance Urine pH Ur Specific [place] Urine Protein Urine Glucose (UA) Urine Ketones Urine Blood Urine Nitrate Urine Bilirubin Urine Urobilinogen Urine Leukocytes Urine RBC Urine WBC Ur Squamous Epith Cells Ur Renal Epithelial Cell Urine Bacteria Ur Culture Indicated? Random Vancomycin 09/18/16 09/18/16 09/18/16 21:55 22:09 22:09 WBC RBC Hgb Hct MCV MCH MCHC RDW Plt Count MPV Neut % (Auto) Lymph % (Auto) [place] % (Auto) Eos % (Auto) Baso % (Auto) Neut # (Auto) Lymph # (Auto) [place] # (Auto) Eos # (Auto) Baso # (Auto) Total Counted Immature Gran % Nucleated RBC % Immature Gran # Segmented Neutrophils Lymphocytes Monocytes Nucleated RBCs # Platelet Estimate Hypochromasia Poikilocytosis Microcytosis Tear Drop Cells Ovalocytes [place] Cells Morphology Comment INR PT Patient/Control Mix Circ Anticoag PTT ABG pH ABG pCO2 ABG pO2 ABG HCO3 ABG Total CO2 ABG O2 Saturation ABG Base Excess FiO2 Sodium 148 H Potassium 2.3 L* Chloride 114 H Carbon Dioxide 18 L Anion Gap 18.3 H BUN 49 H Creatinine 4.20 H GFR Calculation 12 BUN/Creatinine Ratio 11.00 Glucose 70 L POC Glucose 86 Calculated Osmolality 304.3 H Lactic Acid 1.2 Calcium 5.7 L* Magnesium 0.8 L Total Bilirubin AST ALT Alkaline Phosphatase Ammonia Total Creatine Kinase CK-MB (CK-2) Troponin I Total Protein Albumin Globulin Albumin/Globulin Ratio Lipase Urine Color Urine Appearance Urine pH Ur Specific [place] Urine Protein Urine Glucose (UA) Urine Ketones Urine Blood Urine Nitrate Urine Bilirubin Urine Urobilinogen Urine Leukocytes Urine RBC Urine WBC Ur Squamous Epith Cells Ur Renal Epithelial Cell Urine Bacteria Ur Culture Indicated? Random Vancomycin 09/18/16 09/19/16 09/19/16 22:09 04:10 04:10 WBC 15.4 H 14.3 H RBC 2.89 L 2.64 L Hgb 8.1 L 7.4 L Hct 24.6 L 22.9 L MCV 85.1 L 86.7 L MCH 28 28 MCHC 32.9 32.3 RDW 19.4 H 19.4 H Plt Count 637 H 558 H MPV 8.9 L 9.0 L Neut % (Auto) 89.0 H 82.9 H Lymph % (Auto) 8.4 L 12.2 L [place] % (Auto) 1.4 L 3.9 Eos % (Auto) 0.1 0.1 Baso % (Auto) 0.1 0.1 Neut # (Auto) 13.7 H 11.8 H Lymph # (Auto) 1.3 L 1.8 [place] # (Auto) 0.2 0.6 Eos # (Auto) 0.0 0.0 Baso # (Auto) 0.0 0.0 Total Counted 100 100 Immature Gran % 1.0 0.8 Nucleated RBC % 0.0 0.0 Immature Gran # 0.16 0.11 Segmented Neutrophils 94 H 84 Lymphocytes 4 L 11 L Monocytes 2 5 Nucleated RBCs # 0.00 0.00 Platelet Estimate Increased Increased Hypochromasia 1+ 1+ Poikilocytosis Microcytosis 2+ 1+ Tear Drop Cells Ovalocytes [place] Cells Slight Few Morphology Comment INR PT Patient/Control Mix Circ Anticoag PTT ABG pH ABG pCO2 ABG pO2 ABG HCO3 ABG Total CO2 ABG O2 Saturation ABG Base Excess FiO2 Sodium Potassium Chloride Carbon Dioxide Anion Gap BUN Creatinine GFR Calculation BUN/Creatinine Ratio Glucose POC Glucose Calculated Osmolality Lactic Acid Calcium Magnesium Total Bilirubin AST ALT Alkaline Phosphatase Ammonia Total Creatine Kinase CK-MB (CK-2) Troponin I Total Protein Albumin Globulin Albumin/Globulin Ratio Lipase Urine Color Urine Appearance Urine pH Ur Specific [place] Urine Protein Urine Glucose (UA) Urine Ketones Urine Blood Urine Nitrate Urine Bilirubin Urine Urobilinogen Urine Leukocytes Urine RBC Urine WBC Ur Squamous Epith Cells Ur Renal Epithelial Cell Urine Bacteria Ur Culture Indicated? Random Vancomycin 11.7 09/19/16 09/19/16 04:10 07:35 WBC RBC Hgb Hct MCV MCH MCHC RDW Plt Count MPV Neut % (Auto) Lymph % (Auto) [place] % (Auto) Eos % (Auto) Baso % (Auto) Neut # (Auto) Lymph # (Auto) [place] # (Auto) Eos # (Auto) Baso # (Auto) Total Counted Immature Gran % Nucleated RBC % Immature Gran # Segmented Neutrophils Lymphocytes Monocytes Nucleated RBCs # Platelet Estimate Hypochromasia Poikilocytosis Microcytosis Tear Drop Cells Ovalocytes [place] Cells Morphology Comment INR PT Patient/Control Mix Circ Anticoag PTT ABG pH ABG pCO2 ABG pO2 ABG HCO3 ABG Total CO2 ABG O2 Saturation ABG Base Excess FiO2 Sodium 145 Potassium 2.7 L Chloride 112 H Carbon Dioxide 17 L Anion Gap 18.7 H BUN 49 H Creatinine 4.20 H GFR Calculation 10 BUN/Creatinine Ratio 11.00 Glucose 166 H POC Glucose 218 H Calculated Osmolality 304.7 H Lactic Acid Calcium 5.5 L* Magnesium Total Bilirubin AST ALT Alkaline Phosphatase [place]mon[place] Total Creatine Kinase CK-MB (CK-2) Troponin I Total Protein Albumin Globulin Albumin/Globulin Ratio Lipase Urine Color Urine Appearance Urine pH Ur Specific [place] Urine Protein Urine Glucose (UA) Urine Ketones Urine Blood Urine Nitrate Urine Bilirubin Urine Urobilinogen Urine Leukocytes Urine RBC Urine WBC Ur Squamous Epith Cells Ur Renal Epithelial Cell Urine Bacteria Ur Culture Indicated? Random Vancomycin - Reports Microbiology: Microbiology 09/18/16 Unknown Urine Culture - Preliminary Urine,Voided No Growth at 12 hours. 09/18/16 21:48 Gram Stain - Final Urine,Catheterized - Diagnostic Findings Procedure: Chest x-ray: image reviewed by me, report reviewed by me (No consolidation), Ultrasound: report reviewed by me (Renal ultrasound shows severe bilateral hydronephrosis) Specialty Discharge - Follow Up or Referrals
--- NOTE | 2016-09-19 11:18 | Hospitalist Progress Note ---
Assessment and Plan (1) Septic shock Status: Acute Assessment and plan: 1)septic shock- off pressors now, UOP ok. Her urine appears infected, culture pending. Also concern for Cdiff- stool to be sent for toxin testing. Appreciate Dr Mejia's help. She is on Merrem, micafungin. Had a single dose of Vancon admission. 2)candidia intertrigo- on clotrimazole cream 3)renal failure with hydronephrosis bilaterally- will likely need HD soon. nephrology consulted. Old chart indicates she has a single kidney, but US shows 2. she has chronic hydro and her ureteral stent was removed during the last hospital stay. Perhaps she would benefit from urostomy? 4)hypokalemia- replacing 5)hypomagnesemia- replacing 6)anemia- transfuse 2 U PRBC 7)hypocalcemia- check ionized calcium 8)diabetes- begin SSI. 9)hyperosmolar- can stop the D5, change to 1/2 NS 10)code status- full code per my conversation with her this morning. Current Visit: Yes (2) Septic shock due to urinary tract infection Status: Resolved Current Visit: No (3) Chronic kidney disease, stage IV (severe) Status: Chronic Current Visit: No (4) Diabetes mellitus Status: Chronic Current Visit: No Qualifiers: Diabetes mellitus type: type 2 Diabetes mellitus complication status: with kidney complications (5) Obstructive sleep apnea Status: Chronic Current Visit: No (6) Single kidney Status: Chronic Current Visit: No (7) COPD (chronic obstructive pulmonary disease) Status: Chronic Current Visit: No (8) Diarrhea Status: Acute Current Visit: Yes (9) Candidal intertrigo Status: Acute Current Visit: Yes Hospitalist: Subjective Interval history: Mrs Flores is alert this morning and may remember me from last admission. Her BP has been stable off pressors since early this morning. She denies pain. She told me that she did not want to be intubated, then told the fleet technician that it would be ok with her if she needed it. Her was not here this morning. Since I was there Dr Malcolm Ambrosio has seen her and I have reviewed her note. Renal US showed worsened bilateral hydronephrosis. Exam - Constitutional Vitals: Period Temp Pulse Resp BP Sys/Faith Pulse Ox Last 24 Hr 96.4 F-98.6 F 24-96 11-26 81-126/39-65 97-100 General appearance: normal weight, no acute distress ([place]ushingoid facies) - Eye Eye exam: Present: EOMI. Absent: scleral icterus Pupils: Present: ANUSHA - Respiratory Respiratory exam: Present: clear to auscultation bilaterally - Cardiovascular Cardiovascular exam: Present: regular rate and rhythm - GI/Abdominal GI/Abdominal exam: Present: normal bowel sounds, soft. Absent: tenderness - Extremities Exam Extremities exam: Present: edema (dependent pitting edema) - Neurological Exam Neurological exam: Present: alert, oriented X3 - Skin Skin exam: Present: warm Results - Labs CBC & BMP: 09/19/16 04:10 09/19/16 04:10 Lab Results: I have reviewed the past 24 hour labs Specialty Discharge - Follow Up or Referrals
[2016-09-19] MEDS: INSULIN LISPRO 100 UNIT/ML SUBCUT SCH ×3 (13:20→22:27)
[2016-09-19] MEDS ORDERED: CALCIUM GLUCONATE 2,000 MG in SODIUM CHLORIDE 0.9% 100 ML IV PRN (13:32)
--- NOTE | 2016-09-19 14:04 | Nephrology Consult Note ---
History of Present Illness Chief complaint: Acute renal failure History of present illness: Ms. Flores is a 66 year old female patient with a history of anemia chronic kidney disease hypertension diabetes history of CVA. Serum creatinine is trended up to 4.2. Nephrology is been consulted for renal issues. No history of contrast studies. No history of NSAID use. No history of hypotension. Home Medications Medication Instructions Recorded Confirmed Type Sodium Bicarbonate 650 mg PO BID 10/25/14 08/04/16 History Amitriptyline [Elavil] 10 mg PO BEDTIME 08/04/16 08/04/16 History Atorvastatin [Lipitor] 40 mg PO DAILY 08/04/16 08/04/16 History Escitalopram [Lexapro] 20 mg PO DAILY 08/04/16 08/04/16 History HYDROcodone/ACETAMIN 7.5-325 7.5 mg PO Q4HR PRN 08/04/16 08/04/16 History [[place] 7.5-325] levETIRAcetam [Keppra] 500 mg PO BID 08/04/16 08/04/16 History Acetaminophen Tab [Tylenol Tab] 325 mg PO Q4H PRN #0 tablet 08/07/16 Rx Albuterol/Ipratropium Neb [Duoneb] 3 ml RESP TX RT Q6H PRN #0 08/07/16 Rx Budesonide/Formoterol 160-4.5 2 puff INH BID inhaler 08/07/16 Rx [Symbicort 160-4.5] Clotrimazole 1% Cream [Lotrimin 1% 1 applic TOP BID applic 08/07/16 Rx Cream] Dextrose 50% [D50] 12.5 gm IV PRN PRN #0 vial 08/07/16 Rx Dextrose 50% [D50] 25 gm IV PRN PRN #0 vial 08/07/16 Rx Furosemide Tab [Lasix Tab] 20 mg PO BID DIURETIC tablet 08/07/16 Rx Heparin Lock Flush 50 units IV PRN PRN #0 syringe 08/07/16 Rx Insulin Aspart Prot/Asp 70/30 5 unit SUBCUT AC SUPPER unit 08/07/16 Rx [NovoLOG Mix 70/30] Insulin Aspart Prot/Asp 70/30 8 unit SUBCUT AC BREAKFAST unit 08/07/16 Rx [NovoLOG Mix 70/30] Insulin Regular [HumuLIN R] See Protocol SUBCUT ACHS unit 08/07/16 Rx Meropenem [Merrem] 1,000 mg IV Q12H vial 08/07/16 Rx Metoprolol Tartrate Tab [Lopressor 25 mg PO BID tablet 08/07/16 Rx Tab] Micafungin [Mycamine] 100 mg IV Q24H vial 08/07/16 Rx Nitroglycerin Sl Tab [Nitrostat] 0.4 mg SL DIRECTED PRN #0 tablet 08/07/16 Rx Ondansetron Inj [Zofran Inj] 4 mg IV Q4H PRN #0 vial 08/07/16 Rx Pantoprazole Tab [Protonix Tab] 40 mg PO BID tablet 08/07/16 Rx Theophylline ER Cap (24 Hr) 200 mg PO BID W/MEALS capsule 08/07/16 Rx [Adithya-24] Allergies Allergy/AdvReac Type Severity Reaction Status Date / Time Zolpidem [From Ambien] AdvReac Intermediate Anxiety/Con Verified 09/18/16 19:18 fusion silk tape AdvReac Intermediate Redness of Uncoded 09/18/16 19:18 Skin Medical,Surgical,& Family Hx - Medical History Cardio: History of: CHF, CAD, Hypertension, PVD, Cardiovascular Problems Psychological: History of: Depression No history of: Psychiatric Problems Neurology: History of: Cerebrovascular Accident, Seizures No history of: Neurological Problems HEENT: History of: Dental Problems (Dentures) No history of: Eye Problem Endocrine: History of: Diabetes Mellitus (IDDM), Diabetes Mellitus (NIDDM) Rheumatology: No history of;: Rheumatological Problems Respiratory: History of: COPD, Respiratory Problems Renal: History of: Renal Failure (ureteral stricture and hydronephrosis, stent change every 6 months), Renal Problems (CKD stage IV, One Kidney) Genitourinary: History of: Recurring Urinary Tract Infections Gastrointestinal: History of: GERD, GI Problems (ABDOMINAL AORTIC ANEURYSM) No history of: Diverticulitis/ Diverticulosis, Gastrointestinal Bleed, Hepatitis Musculoskeletal: History of: Amputation (LEFT AKA) Hematology: No history of: Blood Disorders Reproductive: No history of: Reproductive Problems Other: History of: Anesthesia Reactions (PT STATES SHE WAS HARD TO AWAKE AND SPENT 15 DAYS IN ICU.) - Surgical History Cardiac Surgeries: Sugical HX of: Cardiac Catheterization, Cardiac Surgery Thoracic Surgeries: Surgical HX of;: Kidney (Renal Surgery) (One Kidney) Abdominal Surgeries: Surgical HX of: Abdominal Surgery (vascular bypass surgery) Reproductive Surgeries: Surgical HX of;: Section (X 1), Gynecologic Surgery, Tubal Ligation - Family History Family History: Reports;: Family Cancer (Mother (Breast)), Family Diabetes ( Sister, Brother), Family Heart Disease (Mother, Brother, Sister), Family Hypertension (Sister, Brother, Mother) Denies;: Family Anesthesia Reaction, Family Hematology, Family Psychiatric Problems, Family Stroke, Additional Family History - Social History Smoking Status: Former smoker Frequency of Alcohol Use: None Type of Drug Use: None Review of Systems Constitutional: fatigue, no fever(s) Respiratory: no dyspnea Gastrointestinal: no abdominal pain Genitourinary: no dysuria, no flank pain Exam - Vital Signs Vital signs: Period Temp Pulse Resp BP Sys/Faith Pulse Ox Last 24 Hr 96.4 F-98.6 F 60-108 11-26 81-126/39-65 97-100 - General Appearance General appearance: well-developed, fatigue EENT: ATNC, PERRL Neck: supple Respiratory: clear Cardiology: no edema, regular rate, regular rhythm Gastrointestinal: normoactive bowel sounds, no tenderness, no guarding Neurologic: alert and oriented x3, CN 3-12 intact Musculoskeletal: deformities (Left above-knee amputation) Psychiatric: mood/affect appropriate, cooperative Results - Labs CBC & BMP: 09/19/16 04:10 09/19/16 04:10 Assessment and Plan (1) Acute renal failure Status: Acute Current Visit: No (2) Chronic kidney disease, stage IV (severe) Status: Chronic Current Visit: No (3) Hypertension Status: Chronic Current Visit: No Qualifiers: Hypertension type: essential hypertension Qualified Code(s): I10 - Essential (primary) hypertension (4) Diabetes mellitus Status: Chronic Current Visit: No Qualifiers: Diabetes mellitus type: type 2 Diabetes mellitus complication status: with kidney complications (5) Single kidney Status: Chronic Current Visit: No (6) Hypertension Status: Chronic Current Visit: No Qualifiers: Hypertension type: essential hypertension Qualified Code(s): I10 - Essential (primary) hypertension (7) COPD (chronic obstructive pulmonary disease) Status: Chronic Current Visit: No Qualifiers: COPD type: unspecified COPD Qualified Code(s): J44.9 - Chronic obstructive pulmonary disease, unspecified Specialty Discharge - Follow Up or Referrals
[2016-09-19] MEDS: LACOSAMIDE 50 MG TABLET PO SCH (14:16)
--- NOTE | 2016-09-19 14:57 | Neurology Consult Note ---
History of Present Illness History of present illness: Patient is unable to provide me any history. History basically obtained from the chart. Ms. Flores is a 66 year old female brought to the emergency room unresponsive after being found by her family. They thought patient had a low glucose and give her some oral glucose without any response. Last time family noted her to be okay was around 8:00 in the morning on the day of admission. No history of trauma, has history of amputation of left lower extremity, history of prior sepsis starting about December of last year through the early part of this year. In December she did have methicillin sensitive staph aureus in the urine as well as Edilma tropicalis. Patient lives at home. She is a diabetic on insulin dose does take vimpat for possible seizures. CT of the head revealed generalized atrophy and microvascular disease Home Medications Medication Instructions Recorded Confirmed Type Sodium Bicarbonate 650 mg PO BID 10/25/14 08/04/16 History Amitriptyline [Elavil] 10 mg PO BEDTIME 08/04/16 08/04/16 History Atorvastatin [Lipitor] 40 mg PO DAILY 08/04/16 08/04/16 History Escitalopram [Lexapro] 20 mg PO DAILY 08/04/16 08/04/16 History HYDROcodone/ACETAMIN 7.5-325 7.5 mg PO Q4HR PRN 08/04/16 08/04/16 History [[place] 7.5-325] levETIRAcetam [Keppra] 500 mg PO BID 08/04/16 08/04/16 History Acetaminophen Tab [Tylenol Tab] 325 mg PO Q4H PRN #0 tablet 08/07/16 Rx Albuterol/Ipratropium Neb [Duoneb] 3 ml RESP TX RT Q6H PRN #0 08/07/16 Rx Budesonide/Formoterol 160-4.5 2 puff INH BID inhaler 08/07/16 Rx [Symbicort 160-4.5] Clotrimazole 1% Cream [Lotrimin 1% 1 applic TOP BID applic 08/07/16 Rx Cream] Dextrose 50% [D50] 12.5 gm IV PRN PRN #0 vial 08/07/16 Rx Dextrose 50% [D50] 25 gm IV PRN PRN #0 vial 08/07/16 Rx Furosemide Tab [Lasix Tab] 20 mg PO BID DIURETIC tablet 08/07/16 Rx Heparin Lock Flush 50 units IV PRN PRN #0 syringe 08/07/16 Rx Insulin Aspart Prot/Asp 70/30 5 unit SUBCUT AC SUPPER unit 08/07/16 Rx [NovoLOG Mix 70/30] Insulin Aspart Prot/Asp 70/30 8 unit SUBCUT AC BREAKFAST unit 08/07/16 Rx [NovoLOG Mix 70/30] Insulin Regular [HumuLIN R] See Protocol SUBCUT ACHS unit 08/07/16 Rx Meropenem [Merrem] 1,000 mg IV Q12H vial 08/07/16 Rx Metoprolol Tartrate Tab [Lopressor 25 mg PO BID tablet 08/07/16 Rx Tab] Micafungin [Mycamine] 100 mg IV Q24H vial 08/07/16 Rx Nitroglycerin Sl Tab [Nitrostat] 0.4 mg SL DIRECTED PRN #0 tablet 08/07/16 Rx Ondansetron Inj [Zofran Inj] 4 mg IV Q4H PRN #0 vial 08/07/16 Rx Pantoprazole Tab [Protonix Tab] 40 mg PO BID tablet 08/07/16 Rx Theophylline ER Cap (24 Hr) 200 mg PO BID W/MEALS capsule 08/07/16 Rx [Adithya-24] Allergies Allergy/AdvReac Type Severity Reaction Status Date / Time Zolpidem [From Ambien] AdvReac Intermediate Anxiety/Con Verified 09/18/16 19:18 fusion silk tape AdvReac Intermediate Redness of Uncoded 09/18/16 19:18 Skin ROS unobtainable: due to mental status, due to delirium Medical,Surgical,& Family Hx - Medical History Cardio: History of: CHF, CAD, Hypertension, PVD, Cardiovascular Problems Psychological: History of: Depression No history of: Psychiatric Problems Neurology: History of: Cerebrovascular Accident, Seizures No history of: Neurological Problems HEENT: History of: Dental Problems (Dentures) No history of: Eye Problem Endocrine: History of: Diabetes Mellitus (IDDM), Diabetes Mellitus (NIDDM) Rheumatology: No history of;: Rheumatological Problems Respiratory: History of: COPD, Respiratory Problems Renal: History of: Renal Failure (ureteral stricture and hydronephrosis, stent change every 6 months), Renal Problems (CKD stage IV, One Kidney) Genitourinary: History of: Recurring Urinary Tract Infections Gastrointestinal: History of: GERD, GI Problems (ABDOMINAL AORTIC ANEURYSM) No history of: Diverticulitis/ Diverticulosis, Gastrointestinal Bleed, Hepatitis Musculoskeletal: History of: Amputation (LEFT AKA) Hematology: No history of: Blood Disorders Reproductive: No history of: Reproductive Problems Other: History of: Anesthesia Reactions (PT STATES SHE WAS HARD TO AWAKE AND SPENT 15 DAYS IN ICU.) - Surgical History Cardiac Surgeries: Sugical HX of: Cardiac Catheterization, Cardiac Surgery Thoracic Surgeries: Surgical HX of;: Kidney (Renal Surgery) (One Kidney) Abdominal Surgeries: Surgical HX of: Abdominal Surgery (vascular bypass surgery) Reproductive Surgeries: Surgical HX of;: Section (X 1), Gynecologic Surgery, Tubal Ligation - Family History Family History: Reports;: Family Cancer (Mother (Breast)), Family Diabetes ( Sister, Brother), Family Heart Disease (Mother, Brother, Sister), Family Hypertension (Sister, Brother, Mother) Denies;: Family Anesthesia Reaction, Family Hematology, Family Psychiatric Problems, Family Stroke, Additional Family History - Social History Smoking Status: Former smoker Frequency of Alcohol Use: None Type of Drug Use: None Exam - Constitutional Vitals: Period Temp Pulse Resp BP Sys/Faith Pulse Ox Last 24 Hr 96.4 F-98.7 F 60-108 11-26 81-177/39-65 97-100 Exam: GENERAL: Patient is in no acute distress. NECK: Neck is supple. There is no JVD. No carotid bruits present. No thyroid masses. CVS: First and second heart sounds are normal. There is no S3 present. Regular rate and rhythm. RESPIRATORY: Lungs are clear to auscultation without any rales or rhonchi. ABDOMEN: Soft and non-tender. Bowel sounds are present. There is no hepatosplenomegaly. EXT: There is no palpable edema. Peripheral pulses are present. Skin: No rashes Central Nervous system: General: Alert, awake and Oriented x 3 Speech: Fluent Comprehension: Intact and normal Facial expressions: Normal Cranial Nerves: CN1/Olfactory: Normal CN II/ Optic: Normal, Visual Hernandez unreliable CN III, and : ANUSHA & EOMI CN V: Normal & intact CN VII: face is symmetric CNVIII: Normal CN XI/X/XI/XII: Intact and Normal Motor: Left [id number] amputation Strength in the right 3-4/5 Sensory: Decreased for all the modalities of PP, LT and temp sense Reflexes: 1+ and symmetrical Cerebellar function: Slow finger to nose testing. Toes: Equivocal Gait: Cannot be tested Results - Labs CBC & BMP: 09/19/16 04:10 09/19/16 04:10 Assessment and Plan (1) Delirium Status: Acute Assessment and plan: This is likely due to infectious/metabolic encephalopathy. No clear evidence of stroke, TIAs, epilepsy or seizures. Patient is already on Vimpat however it is not clear The cause of it. We will do EEG Thank you for the consult Current Visit: Yes Specialty Discharge - Follow Up or Referrals
[2016-09-19] MEDS: DESITIN 4OZ/NYSTATIN 15 GRAM MIXTURE PASTE TOP SCH ×2 (17:14→21:49)
[2016-09-19] MEDS: CLOTRIMAZOLE 1% CREAM 15 GM TUBE TOP SCH ×2 (17:14→21:49)
[2016-09-19] MEDS: VANCOMYCIN 50 MG/ML 60 ML/BOTTLE PO SCH (18:34)
--- NOTE | 2016-09-19 18:44 | ECHO Report ---
Amira Flores Exam Date: 09/19/2016 07:55 Referring Physician: Technologist: Carey Womack RDCS Age: 66 Ht (in): 64 Wt (lb): 220 Gender: F Exam Location: [facility] Echo Indications: Severe sepsis, Acute on chronic kidney injury, UTI, Hypokalemia, Septic shock BP: 110 / 50 HR: 77 Rhythm: Sinus Technical Quality: IMPRESSIONS Left ventricular ejection fraction is estimated at 55 %. There is grade 1 diastolic dysfunction. Tricuspid regurgitation velocities suggest a RVSP of 35 mmHg plus the right atrial pressure. Mild aortic stenosis and mild to moderate aortic insufficiency Mild pulmonic insufficiency MEASUREMENTS (Male / Female) Normal Values 2D ECHO LV Diastolic Diameter PLAX 4.6 cm 4.2 - 5.9 / 3.9 - 5.3 cm LV Systolic Diameter PLAX 2.7 cm LV Fractional Shortening PLAX 41.0 % IVS Diastolic Thickness 1.5 cm 0.6 - 1.0 / 0.6 - 0.9 cm LVPW Diastolic Thickness 1.5 cm 0.6 - 1.0 / 0.6 - 0.9 cm RV Internal Dim ED PLAX 2.0 cm Aortic Root Diameter 3.5 cm LA Systolic Diameter LX 3.0 cm 3.0 - 4.0 / 2.7 - 3.8 cm DOPPLER TR Peak Velocity 296.0 cm/s TR Peak Gradient 35.0 mmHg FINDINGS Left Ventricle Normal left ventricular cavity size. Mild left ventricular hypertrophy. Left ventricular ejection fraction is estimated at 55 %. There is grade 1 diastolic dysfunction Right Ventricle The right ventricle is normal in size and function. Right Atrium The right atrium is normal in size. Left Atrium The left atrium is normal in size. Mitral Valve Mildly thickened mitral valve. Mild mitral annular calcification. No mitral valve regurgitation. Aortic Valve Mild aortic valve sclerosis. Mild to moderate aortic valve regurgitation. There is a full jet of aortic insufficiency pressure half-time ranging from 464 ms to 541 ms. The aortic valve is calcified. There is mild aortic stenosis with valve area estimated be 1.25 cm with a mean gradient of 13 mmHg Tricuspid Valve Morphologically normal tricuspid valve. Trace to mild tricuspid valve regurgitation. Tricuspid regurgitation velocities suggest a RVSP of 35 mmHg plus the right atrial pressure. Pulmonic Valve Morphologically normal pulmonic valve. Mild pulmonary valve regurgitation. Pericardium Normal pericardium without effusion. Aorta Normal ascending aorta dimension. Miller Danelle (Electronically Signed) Final Date: 19 Sep 2016 18:43
[2016-09-19] MEDS ORDERED: MICAFUNGIN 100 MG in SODIUM CHLORIDE 0.9% 100 ML IV SCH (20:00)
[2016-09-19] MEDS ORDERED: CLOTRIMAZOLE/BETAMETHASONE CREAM 15 GM TUBE TOP SCH (21:00)
[2016-09-19 21:24] LABS: Hematocrit 28.9 VOL% (35.7-47.0)
[2016-09-19 21:25] LABS: Hemoglobin 9.4 GM/DL (12.0-16.0)
[2016-09-19] MEDS: NOREPINEPHRINE 8 MG in SODIUM CHLORIDE 0.9% 242 ML IV SCH (22:19)
[2016-09-20] MEDS: POTASSIUM CHLORIDE RIDER 20 MEQ in PREMIX 1 EACH IV PRN ×4 (00:15→13:08)
[2016-09-20] MEDS: LACOSAMIDE 50 MG TABLET PO SCH ×3 (00:23→21:16)
[2016-09-20] MEDS: VANCOMYCIN 50 MG/ML 60 ML/BOTTLE PO SCH ×5 (00:23→23:00)
[2016-09-20] MEDS: SODIUM CHLORIDE 0.45% 1,000 ML IV SCH ×5 (02:15→22:35)
[2016-09-20 06:46] LABS: Osmolality,Calculated 296.7 MOS/KG (273-304); Potassium 3.1 MMOL/L (3.5-5.1)
[2016-09-20 06:48] LABS: Calcium 5.5 MG/DL (8.5-10.1)
[2016-09-20] MEDS: DESITIN 4OZ/NYSTATIN 15 GRAM MIXTURE PASTE TOP SCH ×4 (07:26→21:15)
--- NOTE | 2016-09-20 09:19 | Infectious Disease Progress ---
Assessment and Plan (1) Diarrhea Status: Acute Assessment and plan: C. difficile infection confirmed that she is on oral vancomycin. Diarrhea may be starting to subside. Current Visit: Yes (2) Candidal intertrigo Status: Acute Assessment and plan: This is quite severe Edilma intertrigo again due to her extensive antibiotic exposure over the past several months. Recommendations: Continue clotrimazole cream Current Visit: Yes (3) Hqqhb-do-adbqkro kidney injury Status: Acute Assessment and plan: Probably multifactorial including worsening hydronephrosis and also dehydration from the diarrhea. Current Visit: Yes (4) Septic shock Status: Acute Assessment and plan: I think the C. difficile infection was the cause of her septic shock. She is improved and now off pressors. Recommendations: Continue oral vancomycin Current Visit: Yes (5) Urinary tract infection Status: Chronic Assessment and plan: She has significant pyuria but urine culture negative to date. 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 Stents are now out, urine culture negative to date. I am going to go ahead and stop the micafungin and put her on fluconazole particularly because of her extensive Edilma intertrigo. Current Visit: Yes (6) Uropathy, obstructive Status: Acute Assessment and plan: She has worsening hydronephrosis. No stents present at the moment. She may end up on dialysis soon. Current Visit: No (7) Diabetes mellitus Status: Chronic Current Visit: No Qualifiers: Diabetes mellitus type: type 2 Diabetes mellitus complication status: with kidney complications (8) Hypertension Status: Chronic Current Visit: No Qualifiers: Hypertension type: essential hypertension Qualified Code(s): I10 - Essential (primary) hypertension (9) Intestinal infection due to Clostridium difficile Status: Acute Assessment and plan: Oral vancomycin as above. Discussed with Dr. James Current Visit: Yes Infectious Disease - PN: Subj Interval history: Patient feeling better today, more alert and conversant. She is now off vasopressors. She has not had any fever for over 24 hours. Her diarrhea seems to have lessened somewhat only one soft stool overnight. Infectious Disease Exam (PN) - Constitutional Vitals: Temp Pulse Resp BP Pulse Ox 97.5 F L 90 16 140/64 99 09/20/16 04:00 09/20/16 06:00 09/20/16 06:00 09/20/16 06:00 09/20/16 06:00 General appearance: normal weight, no acute distress (Cushingoid facies) Exam: General appearance: no acute distress, less ill looking than yesterday - Eye Eye exam: Present: EOMI. no icterus Pupils: Present: ANUSHA - ENT ENT exam: no oral exudates, mouth very dry - Respiratory Respiratory exam: vesicular BS, no crepitations or wheezes - Cardiovascular Cardiovascular exam: regular rate and rhythm, no murmurs - GI/Abdominal GI/Abdominal exam: normal bowel sounds, soft, non-tender, no organomegaly or mass - Extremities Exam Extremities exam: Bilateral lower extremity edema - Skin Skin exam: Erythematous exfoliation rash in submammary folds and groin creases Results - Labs CBC & BMP: 09/19/16 21:15 09/20/16 06:00 Lab Results: I have reviewed the past 24 hour labs (Blood and urine cultures negative to date) Specialty Discharge - Follow Up or Referrals
--- NOTE | 2016-09-20 09:53 | Hospitalist Progress Note ---
Assessment and Plan (1) Septic shock Status: Acute Assessment and plan: 1)septic shock- shock resolved. Stool postive for Cdiff and Dr Sergey Ambrosio thinks this may be the primary cause of her sepsis. She is addressing the antibiotics today. She has not had a normal UA or culture in a long time. 2)elvia intertrigo 3)renal failure with hydronephrosis bilaterally- nephrology consulted. anticipate HD soon. Old chart shows single kidney. chronic hydo worse now that stent removed at last hospitalization to control frequent infections. 4)hypokalemia-replace again today. 5)hypomagnesemia- continue to replace 6)anemia- improved with transfusion, monitor, no sign of active bleeding. I think she has anemia of chronic disease. 7)hypocalcemia- ionized calcium WNL 8)diabetes 9)code status- has been DNI in the past, patient says intubation might be ok. She has dementia- discuss with family. 10)nutrition- she has protein calorie malnutrition which will impact her ability to survive her infections. encourage intake. 11)dispo- to floor today. Current Visit: Yes (2) Chronic kidney disease, stage IV (severe) Status: Chronic Current Visit: No (3) Diabetes mellitus Status: Chronic Current Visit: No Qualifiers: Diabetes mellitus type: type 2 Diabetes mellitus complication status: with kidney complications (4) Obstructive sleep apnea Status: Chronic Current Visit: No (5) Single kidney Status: Chronic Current Visit: No (6) COPD (chronic obstructive pulmonary disease) Status: Chronic Current Visit: No (7) Diarrhea Status: Acute Current Visit: Yes (8) Candidal intertrigo Status: Acute Current Visit: Yes Hospitalist: Subjective Interval history: Mrs Flores is doing better this morning. She remianed off pressors yesterday and her BP remains stabel this morning. I have discussed her case to coordinate care with Dr Mejia. She is stable to move to floor. Her family said she had seizures at [facility] recently and that is why she was started on Vimpat. Her daughter wondered if that is what had caused her to "go down" prior to admission as her alertness did not return until midnight even though her blood sugar had been corrected. They also say she has been diagnosed with dementia and does not always know them or other family members and her conversation is usually in the 1990s memories. Exam - Constitutional Vitals: Period Temp Pulse Resp BP Sys/Faith Pulse Ox Last 24 Hr 97.4 F-98.9 F 77-108 12-30 96-177/50-72 94-100 General appearance: normal weight - Eye Eye exam: Present: EOMI. Absent: scleral icterus - Respiratory Respiratory exam: Present: clear to auscultation bilaterally - Cardiovascular Cardiovascular exam: Present: regular rate and rhythm - GI/Abdominal GI/Abdominal exam: Present: normal bowel sounds, soft. Absent: tenderness - Extremities Exam Extremities exam: Absent: edema - Neurological Exam Neurological exam: Present: alert. Absent: oriented X3 (only to person, answers questions mostly appropriately) - Skin Skin exam: Present: warm, dry Results - Labs CBC & BMP: 09/19/16 21:15 09/20/16 06:00 Lab Results: I have reviewed the past 24 hour labs Specialty Discharge - Follow Up or Referrals
[2016-09-20] MEDS: MEROPENEM 500 MG in SODIUM CHLORIDE 0.9% 100 ML IV SCH (10:06)
[2016-09-20] MEDS: CLOTRIMAZOLE 1% CREAM 15 GM TUBE TOP SCH ×3 (10:08→22:58)
[2016-09-20] MEDS: INSULIN LISPRO 100 UNIT/ML SUBCUT SCH ×4 (10:23→21:15)
[2016-09-20] MEDS ORDERED: MAGNESIUM SULF RIDER 4 GM in PREMIX 1 EACH IV ONE (11:06)
[2016-09-20] MEDS: FLUCONAZOLE 100 MG TABLET PO SCH (12:12)
--- NOTE | 2016-09-20 17:38 | Nephrology Progress Note ---
Nephrology - PN: Subj Interval history: Patient is resting comfortably no acute changes. She has been moved to the floor at this time. Serum creatinine is trended down to 3.5. Continue to avoid nephrotoxic agents. Daily BMP. We will follow with you thank you. Exam (PN)-Nephrology - Vital Signs Vital signs: Period Temp Pulse Resp BP Sys/Faith Pulse Ox Last 24 Hr 97.4 F-98.9 F 77-111 12-30 103-166/52-99 93-100 - General Appearance General appearance: well-developed, well-nourished EENT: ATNC Neck: supple Respiratory: clear Cardiology: regular rate, regular rhythm Gastrointestinal: normoactive bowel sounds, no tenderness Neurologic: alert and oriented x3 Musculoskeletal: no clubbing Psychiatric: mood/affect appropriate, cooperative - Lab 09/19/16 21:15 09/20/16 06:00 Most recent lab results ABG pH 7.331 (7.35-7.45) L 09/18/16 20:06 ABG pCO2 30.0 MM HG (35-48) L 09/18/16 20:06 ABG pO2 125.4 MM HG (80-95) H 09/18/16 20:06 ABG HCO3 15.5 MMOL/L (20-26) L 09/18/16 20:06 ABG O2 Saturation 97.4 % (95-100) 09/18/16 20:06 Calcium 5.5 MG/DL (8.5-10.1) L* 09/20/16 06:00 Magnesium 1.2 MG/DL (1.8-2.4) L 09/20/16 09:42 Assessment and Plan (1) Acute renal failure Status: Acute Current Visit: No (2) Chronic kidney disease, stage IV (severe) Status: Chronic Current Visit: No (3) Hypertension Status: Chronic Current Visit: No Qualifiers: Hypertension type: essential hypertension Qualified Code(s): I10 - Essential (primary) hypertension (4) Diabetes mellitus Status: Chronic Current Visit: No Qualifiers: Diabetes mellitus type: type 2 Diabetes mellitus complication status: with kidney complications (5) Single kidney Status: Chronic Current Visit: No (6) Hypertension Status: Chronic Current Visit: No Qualifiers: Hypertension type: essential hypertension Qualified Code(s): I10 - Essential (primary) hypertension (7) COPD (chronic obstructive pulmonary disease) Status: Chronic Current Visit: No Qualifiers: COPD type: unspecified COPD Qualified Code(s): J44.9 - Chronic obstructive pulmonary disease, unspecified Specialty Discharge - Follow Up or Referrals
[2016-09-21] MEDS: VANCOMYCIN 50 MG/ML 60 ML/BOTTLE PO SCH ×3 (05:09→17:12)
[2016-09-21 05:26] LABS: Basophils # 0.1 10*3/uL (0.0-0.2); Basophils % 0.4 % (0.0-0.8); Eosinophils # 0.6 10*3/uL (0.0-0.87); Eosinophils % 5.1 % (0.00-10.9); Hematocrit 32.4 VOL% (35.7-47.0); Hemoglobin 10.3 GM/DL (12.0-16.0); Immature Granulocytes Absolute 0.12 #; Lymphocytes # 2.4 10*3/uL (1.4-4.0); Lymphocytes % 20.3 % (21.3-54.2); Mean Corpuscular HGB Conc 31.8 GM/DL (32-36); Mean Corpuscular Hemoglobin 27 PG (27-34); Mean Corpuscular Volume 84.4 FL (87-102); Mean Platelet Volume 8.9 FL (9.6-12.0); Monocytes # 0.7 10*3/uL (0.11-0.8); Monocytes % 6.1 % (1.7-12.7); Neutrophils # 8.1 10*3/uL (1.4-7.4); Neutrophils % 67.1 % (38.7-73.9); Platelet Count 581 T/CUMM (130-400); Red Blood Count 3.84 MC/CUMM (3.8-5.5); Red Cell Distribution Width 19.5 % (9.3-17.3)
[2016-09-21 06:11] LABS: Alanine Aminotransferase < 6 U/L (13-56); Albumin 1.3 G/DL (3.4-5.0); Alkaline Phosphatase 171 U/L (45-117); Aspartate Amino Transferase 18 U/L (0-37); Blood Urea Nitrogen 37 MG/DL (7-18); Calcium 6.1 MG/DL (8.5-10.1); Glucose 87 MG/DL (74-106); Magnesium 2.3 MG/DL (1.8-2.4); Osmolality,Calculated 297.6 MOS/KG (273-304); Potassium 3.5 MMOL/L (3.5-5.1); Sodium 146 MMOL/L (136-145)
[2016-09-21] MEDS: INSULIN LISPRO 100 UNIT/ML SUBCUT SCH ×4 (07:30→22:16)
[2016-09-21] MEDS: SODIUM CHLORIDE 0.45% 1,000 ML IV SCH ×2 (08:55→18:55)
[2016-09-21] MEDS: LACOSAMIDE 50 MG TABLET PO SCH ×2 (09:53→22:10)
[2016-09-21] MEDS: FLUCONAZOLE 100 MG TABLET PO SCH (09:53)
[2016-09-21] MEDS: CLOTRIMAZOLE 1% CREAM 15 GM TUBE TOP SCH ×2 (09:54→22:16)
[2016-09-21] MEDS: DESITIN 4OZ/NYSTATIN 15 GRAM MIXTURE PASTE TOP SCH ×2 (09:56→22:16)
--- NOTE | 2016-09-21 11:03 | Infectious Disease Progress ---
Assessment and Plan (1) Diarrhea Status: Acute Assessment and plan: C. difficile infection confirmed that she is on oral vancomycin with improvement in the diarrhea. Will continue same. Current Visit: Yes (2) Candidal intertrigo Status: Acute Assessment and plan: This is quite severe Edilma intertrigo again due to her extensive antibiotic exposure over the past several months. The rash in the submammary folds is significantly better but she still has significant rash in the groin folds. Recommendations: Continue clotrimazole cream; it needs to be applied twice a day to the groin folds as well. Continue local fluconazole for a few more days will probably stop on Saturday. Current Visit: Yes (3) [id number] kidney injury Status: Acute Assessment and plan: Probably multifactorial including worsening hydronephrosis and also dehydration from the diarrhea. Improved since admission. Current Visit: Yes (4) Septic shock Status: Acute Assessment and plan: I think the C. difficile infection was the cause of her septic shock. This is resolved and patient looks much better and is now out of ICU. Recommendations: Continue oral vancomycin Current Visit: Yes (5) Urinary tract infection Status: Chronic Assessment and plan: She has significant pyuria but urine culture negative to date. 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 Stents are now out, urine culture only with a few colonies of yeast. No treatment indicated. She has a Lopez catheter and that needs to be removed. Current Visit: Yes (6) Uropathy, obstructive Status: Acute Assessment and plan: She has worsening hydronephrosis. No stents present at the moment. She may end up on dialysis soon. Current Visit: No (7) Diabetes mellitus Status: Chronic Current Visit: No (8) Hypertension Status: Chronic Current Visit: No Qualifiers: Qualified Code(s): I10 - Essential (primary) hypertension (9) Intestinal infection due to Clostridium difficile Status: Acute Assessment and plan: Oral vancomycin as above. Current Visit: Yes Infectious Disease - PN: Subj Interval history: Patient out of ICU, doing better overall. She is alert conversant and has no complaints. She says the diarrhea seems to have resolved last was last night and it was formed. She has no abdominal pain. She is eating and drinking. No fever. Infectious Disease Exam (PN) - Constitutional Vitals: Temp Pulse Resp BP Pulse Ox 98.2 F 100 H 20 143/66 94 L 09/21/16 04:00 09/21/16 04:00 09/21/16 04:00 09/21/16 04:00 09/21/16 04:00 General appearance: normal weight Exam: General appearance: Comfortable - Eye Eye exam: Present: EOMI. no icterus Pupils: Present: ANUSHA - ENT ENT exam: no oral exudates - Respiratory Respiratory exam: vesicular BS, no crepitations or wheezes - Cardiovascular Cardiovascular exam: regular rate and rhythm, no murmurs - GI/Abdominal GI/Abdominal exam: normal bowel sounds, soft, non-tender, no organomegaly or mass - Extremities Exam Extremities exam: Bilateral lower extremity edema - Skin Skin exam: Erythematous exfoliation rash in submammary folds much improved, almost resolved. Still significant rash in groin creases where it seems she has not been getting the topical clotrimazole Results - Labs CBC & BMP: 09/21/16 03:40 09/21/16 03:40 Lab Results: I have reviewed the past 24 hour labs (Blood cultures negative to date) Specialty Discharge - Follow Up or Referrals
--- NOTE | 2016-09-21 11:08 | Hospitalist Progress Note ---
Assessment and Plan (1) Diarrhea Status: Acute Assessment and plan: Pt. on contact for cdiff. Oral vancomycin. ID following. Current Visit: Yes (2) Septic shock Status: Acute Assessment and plan: Shock has resolved. ID is following. Pt. is currently on antibiotics. Current Visit: Yes (3) COPD (chronic obstructive pulmonary disease) Status: Chronic Current Visit: No Qualifiers: COPD type: unspecified COPD Qualified Code(s): J44.9 - Chronic obstructive pulmonary disease, unspecified (4) Chronic kidney disease, stage IV (severe) Status: Chronic Current Visit: No (5) Diabetes mellitus Status: Chronic Assessment and plan: Accuchecks ordered. SSI ordered. Current Visit: No Qualifiers: Diabetes mellitus type: type 2 Diabetes mellitus complication status: with kidney complications Hospitalist: Subjective Interval history: Patient seen and examined. Patient states that she is feeling better this morning. Denies any issues or complaints at this time. Patient on contact isolation for C. difficile in stool. ID following. Patient's blood pressure remains stable today but patient is tachycardiac. We will continue to monitor. Exam - Constitutional Vitals: Period Temp Pulse Resp BP Sys/Faith Pulse Ox Last 24 Hr 97.4 F-98.7 F 99-111 12-24 122-160/63-99 93-98 General appearance: normal weight, no acute distress - Head Head exam: Present: normal inspection, normocephalic - Eye Eye exam: Present: EOMI. Absent: periorbital swelling Pupils: Present: ANUSHA. Absent: dilated - Neck Neck exam: Absent: thyromegaly - Respiratory Respiratory exam: Present: clear to auscultation bilaterally - Cardiovascular Cardiovascular exam: Present: tachycardia - GI/Abdominal GI/Abdominal exam: Present: normal bowel sounds, soft. Absent: tenderness - Extremities Exam Extremities exam: Absent: edema - Neurological Exam Neurological exam: Present: alert - Psychiatric Psychiatric exam: Present: normal affect, normal mood - Skin Skin exam: Present: normal color, warm, dry Results - Labs CBC & BMP: 09/21/16 03:40 09/21/16 03:40 Lab Results: I have reviewed the past 24 hour labs Specialty Discharge - Follow Up or Referrals
[2016-09-21] MEDS: CALCIUM (CARBONATE) 500 MG TABLET PO SCH (16:58)
--- NOTE | 2016-09-21 17:37 | Nephrology Progress Note ---
Nephrology - PN: Subj Interval history: Patient is resting comfortably no acute changes. Serum creatinine is 3.2 which is showing some signs of improvement. No shortness of breath. Exam (PN)-Nephrology - Vital Signs Vital signs: Period Temp Pulse Resp BP Sys/Faith Pulse Ox Last 24 Hr 97.9 F-98.8 F 93-102 17-20 122-151/63-69 93-98 - General Appearance General appearance: well-developed, well-nourished EENT: ATNC Neck: supple Respiratory: clear Cardiology: regular rate, regular rhythm Gastrointestinal: normoactive bowel sounds, no tenderness, no guarding Neurologic: alert and oriented x3 Musculoskeletal: no clubbing Psychiatric: mood/affect appropriate - Lab 09/21/16 03:40 09/21/16 03:40 Most recent lab results ABG pH 7.331 (7.35-7.45) L 09/18/16 20:06 ABG pCO2 30.0 MM HG (35-48) L 09/18/16 20:06 ABG pO2 125.4 MM HG (80-95) H 09/18/16 20:06 ABG HCO3 15.5 MMOL/L (20-26) L 09/18/16 20:06 ABG O2 Saturation 97.4 % (95-100) 09/18/16 20:06 Calcium 6.1 MG/DL (8.5-10.1) L 09/21/16 03:40 Magnesium 2.3 MG/DL (1.8-2.4) 09/21/16 03:40 Assessment and Plan (1) Acute renal failure Status: Acute Current Visit: No (2) Chronic kidney disease, stage IV (severe) Status: Chronic Current Visit: No (3) Hypertension Status: Chronic Current Visit: No Qualifiers: Hypertension type: essential hypertension Qualified Code(s): I10 - Essential (primary) hypertension (4) Diabetes mellitus Status: Chronic Current Visit: No Qualifiers: Diabetes mellitus type: type 2 Diabetes mellitus complication status: with kidney complications (5) Single kidney Status: Chronic Current Visit: No (6) Hypertension Status: Chronic Current Visit: No Qualifiers: Hypertension type: essential hypertension Qualified Code(s): I10 - Essential (primary) hypertension (7) COPD (chronic obstructive pulmonary disease) Status: Chronic Current Visit: No Qualifiers: COPD type: unspecified COPD Qualified Code(s): J44.9 - Chronic obstructive pulmonary disease, unspecified Specialty Discharge - Follow Up or Referrals
[2016-09-21] MEDS: METOPROLOL TARTRATE 50 MG TABLET PO SCH (22:09)
[2016-09-21] MEDS: levETIRAcetam 500 MG TABLET PO SCH (22:09)
[2016-09-21] MEDS: BUDESONIDE/FORMOTEROL 160-4.5 INHALER 6 GM INH SCH (22:16)
[2016-09-22] MEDS: VANCOMYCIN 50 MG/ML 60 ML/BOTTLE PO SCH ×5 (00:17→23:13)
[2016-09-22] MEDS: SODIUM CHLORIDE 0.45% 1,000 ML IV SCH ×3 (06:37→18:07)
[2016-09-22] MEDS: INSULIN LISPRO 100 UNIT/ML SUBCUT SCH ×4 (08:39→21:25)
[2016-09-22] MEDS: CALCIUM (CARBONATE) 500 MG TABLET PO SCH ×3 (08:40→17:50)
[2016-09-22] MEDS: ASPIRIN CHEW 81 MG TABLET PO SCH (08:41)
[2016-09-22] MEDS: levETIRAcetam 500 MG TABLET PO SCH ×2 (08:41→21:02)
[2016-09-22] MEDS: ISOSORBIDE MONONITRATE 20 MG TABLET PO SCH (08:43)
[2016-09-22] MEDS: METOPROLOL TARTRATE 50 MG TABLET PO SCH ×2 (08:43→21:02)
[2016-09-22] MEDS: ATORVASTATIN 40 MG TABLET PO SCH (08:44)
[2016-09-22] MEDS: amLODIPine 10 MG TABLET PO SCH (08:44)
[2016-09-22] MEDS: FLUCONAZOLE 100 MG TABLET PO SCH (08:44)
[2016-09-22] MEDS: PANTOPRAZOLE 40 MG TABLET PO SCH (08:44)
[2016-09-22] MEDS: LACOSAMIDE 50 MG TABLET PO SCH ×2 (08:44→21:02)
[2016-09-22] MEDS: CLOPIDOGREL 75 MG TABLET PO SCH (08:44)
[2016-09-22] MEDS: CLOTRIMAZOLE 1% CREAM 15 GM TUBE TOP SCH ×2 (08:45→21:02)
[2016-09-22] MEDS: DESITIN 4OZ/NYSTATIN 15 GRAM MIXTURE PASTE TOP SCH ×2 (08:45→21:02)
--- NOTE | 2016-09-22 09:22 | Hospitalist Progress Note ---
Assessment and Plan - Time spent with patient Time spent with patient: Less than 30 minutes (1) Intestinal infection due to Clostridium difficile Status: Acute Assessment and plan: She has C. difficile which is continuing to improve. She is on oral vancomycin and ID is following. Current Visit: Yes (2) COPD (chronic obstructive pulmonary disease) Status: Chronic Assessment and plan: No significant shortness of breath or other symptoms to suggest exacerbation. Continue current regimen. Current Visit: No Qualifiers: COPD type: unspecified COPD Qualified Code(s): J44.9 - Chronic obstructive pulmonary disease, unspecified (3) Septic shock Status: Resolved Assessment and plan: Septic shock has resolved. She is continuing antibiotics and ID is following. Current Visit: Yes (4) Candidal intertrigo Status: Acute Assessment and plan: Patient been seen by infectious disease and her recommendations are noted. Current Visit: Yes (5) Chronic kidney disease, stage IV (severe) Status: Chronic Assessment and plan: Patient has acute kidney injury with chronic kidney disease and is being followed by nephrology. Creatinine continues to improve and is at a level of 3.2 yesterday. Current Visit: No (6) Diabetes mellitus Status: Chronic Assessment and plan: Blood sugars have been relatively well controlled. Continue current medical regimen. Current Visit: No Qualifiers: Diabetes mellitus type: type 2 Diabetes mellitus complication status: with kidney complications Chronic kidney disease stage: stage 4 (severe) Hospitalist: Subjective Interval history: Chart reviewed and patient been examined. Patient states her diarrhea is improved but she continues to have some loose stools. She has some shortness of breath and minimal cough but denies any chest discomfort. She remains in contact isolation for Clostridium difficile. Exam - Constitutional Vitals: Period Temp Pulse Resp BP Sys/Faith Pulse Ox Last 24 Hr 97.9 F-99.5 F 63-98 18-22 140-155/62-77 93-98 General appearance: no acute distress - Head Head exam: Present: normocephalic, atraumatic - Eye Eye exam: Present: EOMI Pupils: Present: ANUSHA - ENT ENT exam: Present: normal exam - Neck Neck exam: Present: normal inspection - Respiratory Respiratory exam: Present: clear to auscultation bilaterally. Absent: rales, rhonchi, wheezes - Cardiovascular Cardiovascular exam: Present: regular rate and rhythm - GI/Abdominal GI/Abdominal exam: Present: normal bowel sounds, soft. Absent: tenderness - Extremities Exam Extremities exam: Present: other (Left AKA). Absent: calf tenderness, edema - Back Exam Back exam: Present: normal inspection - Neurological Exam Neurological exam: Present: alert, oriented X3, CN II-XII intact. Absent: motor sensory deficit - Psychiatric Psychiatric exam: Present: normal affect, normal mood. Absent: agitated, anxious - Skin Skin exam: Present: warm, dry, other (Scattered ecchymoses). Absent: erythema Results - Labs CBC & BMP: 09/21/16 03:40 09/21/16 03:40 Lab Results: I have reviewed the past 24 hour labs Specialty Discharge - Follow Up or Referrals
[2016-09-22] MEDS: BUDESONIDE/FORMOTEROL 160-4.5 INHALER 6 GM INH SCH ×2 (10:26→21:03)
[2016-09-22 10:44] LABS: Basophils # 0.1 10*3/uL (0.0-0.2); Basophils % 0.5 % (0.0-0.8); Eosinophils # 0.5 10*3/uL (0.0-0.87); Eosinophils % 4.9 % (0.00-10.9); Hematocrit 31.4 VOL% (35.7-47.0); Immature Granulocytes % 1.2 %; Immature Granulocytes Absolute 0.13 #; Lymphocytes # 2.1 10*3/uL (1.4-4.0); Lymphocytes % 19.6 % (21.3-54.2); Mean Corpuscular HGB Conc 31.8 GM/DL (32-36); Mean Corpuscular Hemoglobin 27 PG (27-34); Mean Corpuscular Volume 85.8 FL (87-102); Mean Platelet Volume 8.6 FL (9.6-12.0); Monocytes # 0.5 10*3/uL (0.11-0.8); Neutrophils # 7.4 10*3/uL (1.4-7.4); Neutrophils % 68.8 % (38.7-73.9); Platelet Count 465 T/CUMM (130-400); Red Blood Count 3.66 MC/CUMM (3.8-5.5); Red Cell Distribution Width 20.1 % (9.3-17.3); White Blood Count 10.8 T/CUMM (4-12)
[2016-09-22 11:15] LABS: Calcium 6.6 MG/DL (8.5-10.1); Osmolality,Calculated 298.8 MOS/KG (273-304)
[2016-09-22] MEDS ORDERED: POTASSIUM CHLORIDE 20 MEQ TABLET PO ONE ×2 (11:33→18:00)
[2016-09-22] MEDS ORDERED: MAGNESIUM OXIDE 400 MG TABLET PO ONE (11:34)
--- NOTE | 2016-09-22 13:29 | Nephrology Progress Note ---
Nephrology - PN: Subj Interval history: States she feels better. Denies SOB/pain. Acidosis and water deficit improved since yesterday. K 3.0. Exam (PN)-Nephrology - Vital Signs Vital signs: Period Temp Pulse Resp BP Sys/Faith Pulse Ox Last 24 Hr 97.9 F-99.5 F 63-93 18-22 139-155/62-77 93-99 - General Appearance General appearance: well-developed, chronically ill EENT: ATNC, PERRL, mucous membranes dry, hearing intact, vision intact Neck: no JVD, no thyromegaly Respiratory: no kyphosis, clear Cardiology: no murmurs, no rub Gastrointestinal: normoactive bowel sounds, no tenderness Integumentary: no rash, warm and dry Neurologic: no focal deficit, no asterixis, alert and oriented x3 Musculoskeletal: no deformities, no erythema Psychiatric: mood/affect appropriate, cooperative - Lab 09/22/16 10:34 09/22/16 10:34 Most recent lab results ABG pH 7.331 (7.35-7.45) L 09/18/16 20:06 ABG pCO2 30.0 MM HG (35-48) L 09/18/16 20:06 ABG pO2 125.4 MM HG (80-95) H 09/18/16 20:06 ABG HCO3 15.5 MMOL/L (20-26) L 09/18/16 20:06 ABG O2 Saturation 97.4 % (95-100) 09/18/16 20:06 Calcium 6.6 MG/DL (8.5-10.1) L 09/22/16 10:34 Magnesium 1.7 MG/DL (1.8-2.4) L 09/22/16 10:34 Assessment and Plan (1) Chronic kidney disease, stage IV (severe) Problem details: Improved to eGFR 19cc/min with creatinine down to 2.6 from 3.2 yesterday. Status: Chronic Assessment and plan: Continue bicarb containing fluids. Current Visit: No (2) Hydronephrosis Status: Acute Assessment and plan: Stents removed by Dr Sellers approx 7 weeks ago. Worsening hydronephrosis bilaterally by u/s. Urology evaluation. Nonurgent. Current Visit: No Qualifiers: Hydronephrosis type: with other ureteral stricture Qualified Code(s): N13.1 - Hydronephrosis with ureteral stricture, not elsewhere classified (3) Hypokalemia Status: Acute Assessment and plan: Give 40meq KCL po x 2 doses today. Goal >3.5. Current Visit: No (4) COPD (chronic obstructive pulmonary disease) Status: Chronic Current Visit: No Qualifiers: COPD type: unspecified COPD Qualified Code(s): J44.9 - Chronic obstructive pulmonary disease, unspecified Specialty Discharge - Follow Up or Referrals
[2016-09-23] MEDS: SODIUM CHLORIDE 0.45% 1,000 ML IV SCH (02:21)
[2016-09-23] MEDS: VANCOMYCIN 50 MG/ML 60 ML/BOTTLE PO SCH ×4 (05:23→23:47)
[2016-09-23 06:40] LABS: Calcium 7.4 MG/DL (8.5-10.1); Magnesium 1.5 MG/DL (1.8-2.4); Osmolality,Calculated 295.6 MOS/KG (273-304); Potassium 4.3 MMOL/L (3.5-5.1)
--- NOTE | 2016-09-23 07:11 | Hospitalist Progress Note ---
Assessment and Plan (1) Intestinal infection due to Clostridium difficile Status: Acute Assessment and plan: She has C. difficile which is continuing to improve. She is on oral vancomycin and ID is following. 09/23/16: Continuing oral vancomycin. She reports continued watery diarrhea. Infectious disease is following. Current Visit: Yes (2) COPD (chronic obstructive pulmonary disease) Status: Chronic Assessment and plan: No significant shortness of breath or other symptoms to suggest exacerbation. Continue current regimen. Current Visit: No Qualifiers: COPD type: unspecified COPD Qualified Code(s): J44.9 - Chronic obstructive pulmonary disease, unspecified (3) Septic shock Status: Resolved Assessment and plan: Septic shock has resolved. She is continuing antibiotics and ID is following. Current Visit: Yes (4) Candidal intertrigo Status: Acute Assessment and plan: Patient been seen by infectious disease and her recommendations are noted. Current Visit: Yes (5) Chronic kidney disease, stage IV (severe) Problem details: Improved to eGFR 19cc/min with creatinine down to 2.6 from 3.2 yesterday. Status: Chronic Assessment and plan: Patient has acute kidney injury with chronic kidney disease and is being followed by nephrology. Creatinine continues to improve and is at a level of 3.2 yesterday. 09/23/16: Patient being followed by nephrology. Creatinine continues to improve and his level of 2.4 today. She is mildly acidotic as well as hyponatremic. Current Visit: No (6) Diabetes mellitus Status: Chronic Assessment and plan: Blood sugars have been relatively well controlled. Continue current medical regimen. 09/23/16: Blood sugars running in the 200 range. Will make further adjustments and continue Accu-Cheks with sliding scale. Current Visit: No Qualifiers: Diabetes mellitus type: type 2 Diabetes mellitus complication status: with kidney complications Chronic kidney disease stage: stage 4 (severe) Hospitalist: Subjective Interval history: Patient seen with present in the room. She states that she feels better and appetite has improved now. She is having no nausea or vomiting but did have 4 large watery nonbloody stools last evening. She continues to have some lower abdominal discomfort intermittently. Exam - Constitutional Vitals: Period Temp Pulse Resp BP Sys/Faith Pulse Ox Last 24 Hr 98.5 F-99.8 F 65-84 18-22 122-145/61-65 97-99 General appearance: no acute distress - Head Head exam: Present: normocephalic, atraumatic - Eye Eye exam: Present: EOMI. Absent: scleral icterus Pupils: Present: ANUSHA - ENT ENT exam: Present: normal oropharynx - Neck Neck exam: Present: normal inspection - Respiratory Respiratory exam: Present: clear to auscultation bilaterally - Cardiovascular Cardiovascular exam: Present: regular rate and rhythm. Absent: tachycardia - GI/Abdominal GI/Abdominal exam: Present: normal bowel sounds, tenderness (Minimal tenderness in the lower quadrants without rebound or guarding), soft - Extremities Exam Extremities exam: Present: normal inspection, other (Left AKA). Absent: calf tenderness, edema - Back Exam Back exam: Present: normal inspection - Neurological Exam Neurological exam: Present: alert, oriented X3, CN II-XII intact. Absent: motor sensory deficit - Psychiatric Psychiatric exam: Present: normal affect, normal mood. Absent: agitated, anxious - Skin Skin exam: Present: warm, dry, other (Scattered ecchymoses of different stages and age) Results - Labs CBC & BMP: 09/22/16 10:34 09/23/16 05:18 Lab Results: I have reviewed the past 24 hour labs Specialty Discharge - Follow Up or Referrals
[2016-09-23] MEDS ORDERED: MAGNESIUM SULF INJ 3 GM in SODIUM CHLORIDE 0.9% 100 ML IV ONE (07:16)
[2016-09-23] MEDS: INSULIN LISPRO 100 UNIT/ML SUBCUT SCH ×4 (07:46→21:43)
[2016-09-23] MEDS: CALCIUM (CARBONATE) 500 MG TABLET PO SCH ×3 (08:00→17:31)
[2016-09-23] MEDS: ISOSORBIDE MONONITRATE 20 MG TABLET PO SCH (08:09)
[2016-09-23] MEDS: CLOPIDOGREL 75 MG TABLET PO SCH (08:09)
[2016-09-23] MEDS: ASPIRIN CHEW 81 MG TABLET PO SCH (08:10)
[2016-09-23] MEDS: amLODIPine 10 MG TABLET PO SCH (08:10)
[2016-09-23] MEDS: LACTOBACILLUS ACIDOPHILUS/BULGARICUS CAPLET PO SCH (08:10)
[2016-09-23] MEDS: DESITIN 4OZ/NYSTATIN 15 GRAM MIXTURE PASTE TOP SCH ×2 (08:11→21:44)
[2016-09-23] MEDS: METOPROLOL TARTRATE 50 MG TABLET PO SCH ×2 (08:11→21:42)
[2016-09-23] MEDS: FLUCONAZOLE 100 MG TABLET PO SCH (08:11)
[2016-09-23] MEDS: PANTOPRAZOLE 40 MG TABLET PO SCH (08:11)
[2016-09-23] MEDS: LACOSAMIDE 50 MG TABLET PO SCH ×2 (08:11→21:41)
[2016-09-23] MEDS: levETIRAcetam 500 MG TABLET PO SCH ×2 (08:11→21:41)
[2016-09-23] MEDS: ATORVASTATIN 40 MG TABLET PO SCH (08:11)
[2016-09-23] MEDS: CLOTRIMAZOLE 1% CREAM 15 GM TUBE TOP SCH ×2 (08:11→21:44)
[2016-09-23] MEDS: BUDESONIDE/FORMOTEROL 160-4.5 INHALER 6 GM INH SCH ×2 (08:12→21:41)
[2016-09-23] MEDS: INSULIN ASPART PROTAMINE/ASPART 70/30 100 UNIT/ML SUBCUT SCH ×2 (08:22→21:43)
[2016-09-23] MEDS: SODIUM ACETATE 100 MEQ in STERILE WATER INJ 1,000 ML IV SCH ×2 (08:34→18:01)
[2016-09-23] MEDS: MAGNESIUM CHLORIDE 64 MG TABLET PO SCH ×2 (08:46→21:42)
--- NOTE | 2016-09-23 13:48 | Nephrology Progress Note ---
Nephrology - PN: Subj Interval history: Pt denies SOB/pain. CO2 15->13->19->15. Agree with excellent IVF choice to correct metabolic acidosis and worsening free water deficit manifested by worsening hypernatremia. Exam (PN)-Nephrology - Vital Signs Vital signs: Period Temp Pulse Resp BP Sys/Faith Pulse Ox Last 24 Hr 98.0 F-99.8 F 70-84 16-22 122-150/55-68 97-99 - General Appearance General appearance: obese, chronically ill EENT: ATNC, PERRL, hearing intact, vision intact Neck: no JVD, no thyromegaly Respiratory: no kyphosis, no scoliosis Cardiology: no murmurs, no rub Gastrointestinal: normoactive bowel sounds, no tenderness Integumentary: no rash, warm and dry Neurologic: no focal deficit, no asterixis Musculoskeletal: no deformities Psychiatric: mood/affect appropriate, cooperative - Lab 09/22/16 10:34 09/23/16 05:18 Most recent lab results ABG pH 7.331 (7.35-7.45) L 09/18/16 20:06 ABG pCO2 30.0 MM HG (35-48) L 09/18/16 20:06 ABG pO2 125.4 MM HG (80-95) H 09/18/16 20:06 ABG HCO3 15.5 MMOL/L (20-26) L 09/18/16 20:06 ABG O2 Saturation 97.4 % (95-100) 09/18/16 20:06 Calcium 7.4 MG/DL (8.5-10.1) L 09/23/16 05:18 Magnesium 1.5 MG/DL (1.8-2.4) L 09/23/16 05:18 Assessment and Plan (1) Chronic kidney disease, stage IV (severe) Problem details: Improved creatinine down to 2.4 from 2.6 yesterday. No acute indication for renal replacement therapy at this time. Status: Chronic Assessment and plan: Continue bicarb containing fluids. Current Visit: No (2) Hydronephrosis Status: Acute Assessment and plan: Stents removed by Dr Sellers approx 7 weeks ago. Worsening hydronephrosis bilaterally by u/s. Urology evaluation. Nonurgent. Current Visit: No Qualifiers: Hydronephrosis type: with other ureteral stricture Qualified Code(s): N13.1 - Hydronephrosis with ureteral stricture, not elsewhere classified (3) Hypokalemia Status: Acute Assessment and plan: Give 40meq KCL po x 2 doses today. Goal >3.5. Current Visit: No (4) COPD (chronic obstructive pulmonary disease) Status: Chronic Current Visit: No Qualifiers: COPD type: unspecified COPD Qualified Code(s): J44.9 - Chronic obstructive pulmonary disease, unspecified Specialty Discharge - Follow Up or Referrals
[2016-09-24] MEDS: SODIUM ACETATE 100 MEQ in STERILE WATER INJ 1,000 ML IV SCH ×2 (05:26→16:28)
[2016-09-24] MEDS: VANCOMYCIN 50 MG/ML 60 ML/BOTTLE PO SCH ×3 (05:26→18:17)
[2016-09-24 05:49] LABS: Basophils % 0.3 % (0.0-0.8); Eosinophils % 9.9 % (0.00-10.9); Hematocrit 26.1 VOL% (35.7-47.0); Hemoglobin 8.5 GM/DL (12.0-16.0); Immature Granulocytes % 0.8 %; Immature Granulocytes Absolute 0.08 #; Lymphocytes # 2.5 10*3/uL (1.4-4.0); Lymphocytes % 25.6 % (21.3-54.2); Mean Corpuscular HGB Conc 32.6 GM/DL (32-36); Mean Corpuscular Hemoglobin 28 PG (27-34); Mean Corpuscular Volume 85.9 FL (87-102); Mean Platelet Volume 8.7 FL (9.6-12.0); Monocytes # 0.6 10*3/uL (0.11-0.8); Monocytes % 6.7 % (1.7-12.7); Neutrophils # 5.4 10*3/uL (1.4-7.4); Neutrophils % 56.7 % (38.7-73.9); Platelet Count 418 T/CUMM (130-400); Red Blood Count 3.04 MC/CUMM (3.8-5.5); White Blood Count 9.6 T/CUMM (4-12)
[2016-09-24 06:15] LABS: Calcium 7.4 MG/DL (8.5-10.1); Osmolality,Calculated 297.4 MOS/KG (273-304); Potassium 3.4 MMOL/L (3.5-5.1)
--- NOTE | 2016-09-24 07:12 | Consultation ---
Mrs. Flores is a complicated patient. A lot of the history was obtained from her . She is a 66-year-old diabetic and says she has been diabetic for about 20 years. She has chronic serafin l failure. She had indwelling stents intermittently for the last few years. Dr. Sellers is her uro logist. Dr. Sellers's last note said she had urethral stents placed for urethral strictures. I do not think any other etiology is known. Her said that she had stent exchanges every six month s for about four years before it was decided to leave the stents out on the last visit. That was in June. Apparently, she has gotten septic after stent exchanges in the past. She has been readmitted now. I do not think for sepsis at this time. She had creatinine of 4.2 on admission on September 18. Cr eatinine today is 2.6, BUN 31. There was concern because of increasing hydronephrosis seen on the im aging studies and Dr. Reed asked her Urology be involved to help with the care. Apparently, her creatinine has reached 5.4 when she was in [place] recently and CT had been reported showing inc reasing hydronephrosis on the right. All of this occurred prior to her hospitalization in June. Dr Manuelito Sellers felt that her results looked better and the stents were removed at that time. She had had temporary nephrostomy tubes in the past. It is uncertain exactly what the situation as far as her u pper tracts. It is difficult to know from my standpoint exactly where we were, so I will defer the d ecision about whether or not to reinsert stents to Dr. Sellers. He is off for the weekend. The pat ient appears to be okay clinically at this time and again creatinine down to 2.6. Nothing else to ad d about decision about whether or not to re-drain the upper tracts.
--- NOTE | 2016-09-24 07:44 | Urology Consultation ---
History of Present Illness - Data of Consult Consult date: 09/24/16 - Consult Narrative History of present illness: Ms. Flores is a 66 year old female Ms. lFores is a 66-year-old white female known to me. She has a history of bilateral ureteral strictures that originally were treated with bilateral ureteral stents. The kidney on the left side had such poor function that we eventually remove the stent on the left side and she was basically operating off one kidney with a stent on that side. The patient has had a problem with recurrent pyelonephritis and it was possible that reflux from the stent was contributing to her recurring infections. The patient and her requested that we remove the stent and see if this would decrease the frequency of pyelonephritis and they did this with the understanding that the hydronephrosis could get worse and that deterioration in her renal function could be accelerated. The patient now has child infections due to frequent antibiotics and also colon infection from broad-spectrum antibiotics. Her creatinine is remarkably stable less than 3 but renal ultrasound does suggest an increase in the amount of hydronephrosis. I again discussed with the patient and her the possibility of replacing the skin or continuing as it is they have requested that we continue to leave the stent out. The patient did not have any increased symptoms after the stent was removed CC: Jo Ann Medina - Home Medications and Allergies Home Medications: Home Medications Medication Instructions Recorded Confirmed Type Amitriptyline [Elavil] 10 mg PO BEDTIME 08/04/16 09/20/16 History Atorvastatin [Lipitor] 40 mg PO DAILY 08/04/16 09/20/16 History Escitalopram [Lexapro] 20 mg PO DAILY 08/04/16 09/20/16 History levETIRAcetam [Keppra] 1,000 mg PO BID 08/04/16 09/20/16 History Albuterol/Ipratropium Neb [Duoneb] 3 ml RESP TX RT Q6H PRN #0 08/07/16 Rx Budesonide/Formoterol 160-4.5 2 puff INH BID inhaler 08/07/16 09/20/16 Rx [Symbicort 160-4.5] Amoxicillin/Clav Tab [Augmentin 875 mg PO Q12H 09/20/16 09/20/16 History Tab] Aspirin 81 mg PO DAILY 09/20/16 09/20/16 History Benztropine Tab [Cogentin Tab] 1 mg PO DAILY 09/20/16 09/20/16 History Calcium (Carbonate) [Oscal 500] 500 mg PO TID W/MEALS 09/20/16 09/20/16 History Clopidogrel [Plavix] 75 mg PO DAILY 09/20/16 09/20/16 History Insulin Aspart Prot/Asp 70/30 6 unit SUBCUT BID 09/20/16 09/20/16 History [NovoLOG Mix 70/30] Isosorbide Mononitrate 10 mg PO DAILY 09/20/16 09/20/16 History Lacosamide [Vimpat] 100 mg PO BID 09/20/16 09/20/16 History Metoprolol Tartrate Tab [Lopressor 50 mg PO BID 09/20/16 09/20/16 History Tab] Pantoprazole Tab [Protonix Tab] 40 mg PO DAILY 09/20/16 09/20/16 History amLODIPine [Norvasc] 10 mg PO DAILY 09/20/16 09/20/16 History risperiDONE [Risperdal] 0.25 mg PO BID 09/20/16 09/20/16 History Allergies/Adverse Reactions: Allergies Allergy/AdvReac Type Severity Reaction Status Date / Time Zolpidem [From Ambien] AdvReac Intermediate Anxiety/Con Verified 09/18/16 19:18 fusion silk tape AdvReac Intermediate Redness of Uncoded 09/18/16 19:18 Skin Exam - Constitutional Vitals: Period Temp Pulse Resp BP Sys/Faith Pulse Ox Last 24 Hr 97.9 F-99.2 F 71-75 16-20 123-151/55-68 96-98 Results - Labs CBC & BMP: 09/24/16 04:42 09/24/16 04:42 Specialty Discharge - Follow Up or Referrals
[2016-09-24] MEDS: PANTOPRAZOLE 40 MG TABLET PO SCH (08:26)
[2016-09-24] MEDS: CLOPIDOGREL 75 MG TABLET PO SCH (08:26)
[2016-09-24] MEDS: ATORVASTATIN 40 MG TABLET PO SCH (08:26)
[2016-09-24] MEDS: LACTOBACILLUS ACIDOPHILUS/BULGARICUS CAPLET PO SCH (08:26)
[2016-09-24] MEDS: METOPROLOL TARTRATE 50 MG TABLET PO SCH ×2 (08:26→22:36)
[2016-09-24] MEDS: FLUCONAZOLE 100 MG TABLET PO SCH (08:26)
[2016-09-24] MEDS: MAGNESIUM CHLORIDE 64 MG TABLET PO SCH ×2 (08:26→22:34)
[2016-09-24] MEDS: ASPIRIN CHEW 81 MG TABLET PO SCH (08:26)
[2016-09-24] MEDS: CALCIUM (CARBONATE) 500 MG TABLET PO SCH ×3 (08:26→18:17)
[2016-09-24] MEDS: levETIRAcetam 500 MG TABLET PO SCH ×2 (08:26→22:34)
[2016-09-24] MEDS: LACOSAMIDE 50 MG TABLET PO SCH ×2 (08:26→22:34)
[2016-09-24] MEDS: CLOTRIMAZOLE 1% CREAM 15 GM TUBE TOP SCH ×2 (08:29→22:37)
[2016-09-24] MEDS: ISOSORBIDE MONONITRATE 20 MG TABLET PO SCH (08:29)
[2016-09-24] MEDS: amLODIPine 10 MG TABLET PO SCH (08:29)
[2016-09-24] MEDS: DESITIN 4OZ/NYSTATIN 15 GRAM MIXTURE PASTE TOP SCH ×2 (08:29→22:39)
[2016-09-24] MEDS: BUDESONIDE/FORMOTEROL 160-4.5 INHALER 6 GM INH SCH ×2 (08:30→22:38)
[2016-09-24] MEDS: INSULIN LISPRO 100 UNIT/ML SUBCUT SCH ×4 (09:03→22:35)
[2016-09-24] MEDS: INSULIN ASPART PROTAMINE/ASPART 70/30 100 UNIT/ML SUBCUT SCH ×2 (09:03→22:36)
--- NOTE | 2016-09-24 11:29 | Infectious Disease Progress ---
Assessment and Plan (1) Diarrhea Status: Acute Assessment and plan: C. difficile infection confirmed that she is on oral vancomycin with resolution of the diarrhea. Complete 14 days of oral vancomycin therapy, so about 8 more days to go. Current Visit: Yes (2) Candidal intertrigo Status: Acute Assessment and plan: This is quite severe Edilma intertrigo again due to her extensive antibiotic exposure over the past several months. This is improving. Recommendations: Continue clotrimazole cream; I will stop the oral fluconazole. Current Visit: Yes (3) [id number] kidney injury Status: Acute Assessment and plan: Probably multifactorial including worsening hydronephrosis and also dehydration from the diarrhea. Improved since admission. Current Visit: Yes (4) Septic shock Status: Resolved Assessment and plan: I think the C. difficile infection was the cause of her septic shock. This is resolved and patient looks much better overall. Recommendations: Continue oral vancomycin as noted above Current Visit: Yes (5) Urinary tract infection Status: Chronic Assessment and plan: She has significant pyuria but urine culture negative to date. 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 Stents are now out, urine culture only with a few colonies of yeast. No treatment indicated. Current Visit: Yes (6) Uropathy, obstructive Status: Acute Assessment and plan: She has worsening hydronephrosis. No stents present at the moment. She may end up on dialysis soon. Current Visit: No (7) Diabetes mellitus Status: Chronic Current Visit: No (8) Hypertension Status: Chronic Current Visit: No Qualifiers: Qualified Code(s): I10 - Essential (primary) hypertension (9) Intestinal infection due to Clostridium difficile Status: Acute Assessment and plan: Oral vancomycin as above. Current Visit: Yes Infectious Disease - PN: Subj Interval history: Patient doing relatively okay, the diarrhea has resolved, she only has about 2 soft stools yesterday. She has not had any fever. No nausea or vomiting. No cough or shortness of breath. Infectious Disease Exam (PN) - Constitutional Vitals: Temp Pulse Resp BP Pulse Ox 97.6 F 59 L 18 139/57 97 09/24/16 10:51 09/24/16 10:51 09/24/16 10:51 09/24/16 10:51 09/24/16 10:51 General appearance: no acute distress Exam: General appearance: Comfortable - Eye Eye exam: Present: EOMI. no icterus Pupils: Present: ANUSHA - ENT ENT exam: no oral exudates - Respiratory Respiratory exam: vesicular BS, no crepitations or wheezes - Cardiovascular Cardiovascular exam: regular rate and rhythm, no murmurs - GI/Abdominal GI/Abdominal exam: normal bowel sounds, soft, non-tender, no organomegaly or mass - Extremities Exam Extremities exam: Right lower extremity edema, healed left A-K amputation stump. - Skin Skin exam: Erythematous exfoliation rash in submammary folds almost resolved. Rash in groin creases much improved since last week. Results - Labs CBC & BMP: 09/24/16 04:42 09/24/16 04:42 Lab Results: I have reviewed the past 24 hour labs (Blood cultures came back negative) Specialty Discharge - Follow Up or Referrals
--- NOTE | 2016-09-24 11:33 | Hospitalist Progress Note ---
Assessment and Plan (1) C. difficile diarrhea Status: Acute Assessment and plan: cont vancomycin liquid Current Visit: Yes (2) Delirium Status: Acute Assessment and plan: Dr. Deluna consulted. Doubt seizure or TIA, most likely metabolic encephalopathy Current Visit: Yes (3) Anemia Status: Chronic Assessment and plan: 2 units of PRBC Current Visit: No (4) COPD (chronic obstructive pulmonary disease) Status: Chronic Assessment and plan: duoneb Current Visit: No (5) Hypertension Status: Chronic Assessment and plan: cont norvasc Current Visit: No Qualifiers: Hypertension type: essential hypertension Qualified Code(s): I10 - Essential (primary) hypertension (6) Insulin dependent diabetes mellitus Status: Chronic Assessment and plan: cont 70/30 6 units SQ bid Current Visit: No (7) Septic shock Status: Resolved Assessment and plan: due to c. diff. Current Visit: Yes (8) CKD (chronic kidney disease) stage 4, GFR 15-29 ml/min Problem details: Stable at best creatinine in years. Status: Acute Assessment and plan: cont sodium acetate, stents removed. Current Visit: No (9) Hypokalemia Status: Acute Assessment and plan: replace Current Visit: Yes (10) Candidal intertrigo Status: Acute Assessment and plan: Clotrimazole 1% cream twice daily Current Visit: Yes (11) Urinary tract infection Status: Chronic Assessment and plan: growing elvia tropicalis. No treatment needed for Dr. Loving Current Visit: Yes (12) Seizure Status: Acute Assessment and plan: vimpat and keppra Current Visit: Yes Hospitalist: Subjective Interval history: Patient has severe diffuse swelling consistent with anasarca and diffuse bruises. Dr. Sellers and I spoke with her today. He has removed the stents and will allow her to urinate as long as she can and at some point in the future she will need dialysis. Exam - Constitutional Vitals: Period Temp Pulse Resp BP Sys/Faith Pulse Ox Last 24 Hr 97.6 F-99.2 F 59-75 16-20 122-151/50-66 95-98 Exam: Heart Rate-[RRR] Lungs-[CTAB] GI-[+bs soft, NT] Ext-[anasarca] Neuro [Motor 5/5], [alert and oriented times 3] psych [normal mood and affect] General [no acute distress] Skin diffuse purpura Results - Labs CBC & BMP: 09/24/16 04:42 09/24/16 04:42 Lab Results: I have reviewed the past 24 hour labs - Diagnostic Findings Procedure: Chest x-ray: report reviewed by me (Hypoinflation), Ultrasound: report reviewed by me (Bilateral hydronephrosis) Specialty Discharge - Follow Up or Referrals
--- NOTE | 2016-09-24 13:35 | Neurology Progress Note ---
Neurology - PN : Subjective Interval history: Patient seems to be doing much better. No more seizure-like activity reported. EEG reveals generalized slowing. Exam (Progress Note) - Constitutional Vitals: Period Temp Pulse Resp BP Sys/Faith Pulse Ox Last 24 Hr 97.6 F-99.2 F 59-75 16-20 122-151/50-66 95-98 Exam: GENERAL: Patient is in no acute distress. NECK: Neck is supple. There is no JVD. No carotid bruits present. No thyroid masses. CVS: First and second heart sounds are normal. There is no S3 present. Regular rate and rhythm. RESPIRATORY: Lungs are clear to auscultation without any rales or rhonchi. ABDOMEN: Soft and non-tender. Bowel sounds are present. There is no hepatosplenomegaly. EXT: There is no palpable edema. Peripheral pulses are present. Skin: No rashes Central Nervous system: General: Alert, awake and Oriented x 3 Speech: Fluent Comprehension: Intact and normal Facial expressions: Normal Cranial Nerves: CN1/Olfactory: Normal CN II/ Optic: Normal, Visual Hernandez unreliable CN III, and : ANUSHA & EOMI CN V: Normal & intact CN VII: face is symmetric CNVIII: Normal CN XI/X/XI/XII: Intact and Normal Motor: Left [id number] amputation Strength in the right 3-4/5 Sensory: Decreased for all the modalities of PP, LT and temp sense Reflexes: 1+ and symmetrical Cerebellar function: Slow finger to nose testing. Toes: Equivocal Gait: Cannot be tested Results - Labs CBC & BMP: 09/24/16 04:42 09/24/16 04:42 Assessment and Plan (1) Delirium Status: Acute Assessment and plan: This is likely due to infectious/metabolic encephalopathy. No clear evidence of stroke, TIAs, epilepsy or seizures. Continue Vimpat at the same dose No further neurological intervention needed. Sign off please call as needed Current Visit: Yes Specialty Discharge - Follow Up or Referrals
[2016-09-24] MEDS ORDERED: POTASSIUM CHLORIDE 20 MEQ TABLET PO ONE (14:53)
[2016-09-24] MEDS: ALBUTEROL/IPRATROPIUM 3 ML NEB RESP TX SCH ×2 (19:28→23:41)
--- NOTE | 2016-09-24 20:38 | Nephrology Progress Note ---
Nephrology - PN: Subj Interval history: Patient is resting comfortably no acute changes. Serum creatinine is trended down. Exam (PN)-Nephrology - Vital Signs Vital signs: Period Temp Pulse Resp BP Sys/Faith Pulse Ox Last 24 Hr 97.6 F-99.2 F 59-80 14-20 122-155/50-66 95-100 - General Appearance General appearance: well-developed, well-nourished EENT: ATNC Neck: supple Respiratory: clear Cardiology: regular rate, regular rhythm Gastrointestinal: normoactive bowel sounds, no tenderness Integumentary: no rash - Lab 09/24/16 04:42 09/24/16 04:42 Most recent lab results ABG pH 7.331 (7.35-7.45) L 09/18/16 20:06 ABG pCO2 30.0 MM HG (35-48) L 09/18/16 20:06 ABG pO2 125.4 MM HG (80-95) H 09/18/16 20:06 ABG HCO3 15.5 MMOL/L (20-26) L 09/18/16 20:06 ABG O2 Saturation 97.4 % (95-100) 09/18/16 20:06 Calcium 7.4 MG/DL (8.5-10.1) L 09/24/16 04:42 Magnesium 2.1 MG/DL (1.8-2.4) 09/24/16 04:42 Assessment and Plan (1) Acute renal failure Status: Acute Current Visit: No (2) Chronic kidney disease, stage IV (severe) Problem details: Improved creatinine down to 2.4 from 2.6 yesterday. No acute indication for renal replacement therapy at this time. Status: Chronic Current Visit: No (3) Hypertension Status: Chronic Current Visit: No Qualifiers: Hypertension type: essential hypertension Qualified Code(s): I10 - Essential (primary) hypertension (4) Diabetes mellitus Status: Chronic Current Visit: No Qualifiers: Diabetes mellitus type: type 2 Diabetes mellitus complication status: with kidney complications Chronic kidney disease stage: stage 3 (moderate) (5) Single kidney Status: Chronic Current Visit: No (6) Hypertension Status: Chronic Current Visit: No Qualifiers: Hypertension type: essential hypertension Qualified Code(s): I10 - Essential (primary) hypertension (7) COPD (chronic obstructive pulmonary disease) Status: Chronic Current Visit: No Qualifiers: COPD type: unspecified COPD Qualified Code(s): J44.9 - Chronic obstructive pulmonary disease, unspecified Specialty Discharge - Follow Up or Referrals
--- NOTE | 2016-09-24 22:23 | Electroencephalogram ---
HISTORY: A 66-year-old patient with a history of septic shock UTI and change in mental status. INTRODUCTION: A digital EEG was performed using the standard 10/20 system of electrode placement wit h one channel of EKG monitoring. Photic stimulation and hyperventilation are performed. DESCRIPTION OF RECORD: The background is somewhat disorganized, consists of 6 to 7 hertz moderate am plitude bilateral symmetrical rhythm. Photic stimulation elicits driving response at slower flash fr equencies. Hyperventilation produced no abnormalities. There are no focal, sharp-wave, spike or wav e activity seen. Heart rate is 66 beats per minute. IMPRESSION: ABNORMAL EEG DUE TO GENERALIZED SLOWING. CLINICAL CORRELATION: This record is supportive of moderately severe encephalopathy, which could be secondary to postictal state, posthypoxic state, metabolic disorder, diffuse [employer] insult, or increased intracranial pressure. No epileptiform/seizure activity seen. Clinical correlation is suggested.
[2016-09-25] MEDS: SODIUM ACETATE 100 MEQ in STERILE WATER INJ 1,000 ML IV SCH ×2 (01:39→13:23)
[2016-09-25] MEDS: VANCOMYCIN 50 MG/ML 60 ML/BOTTLE PO SCH ×4 (01:39→17:40)
[2016-09-25] MEDS: ALBUTEROL/IPRATROPIUM 3 ML NEB RESP TX SCH ×6 (04:00→23:10)
[2016-09-25 06:31] LABS: Basophils % 0.5 % (0.0-0.8); Eosinophils % 11.9 % (0.00-10.9); Hematocrit 25.5 VOL% (35.7-47.0); Hemoglobin 8.3 GM/DL (12.0-16.0); Immature Granulocytes % 0.9 %; Immature Granulocytes Absolute 0.08 #; Lymphocytes % 23.3 % (21.3-54.2); Mean Corpuscular HGB Conc 32.5 GM/DL (32-36); Mean Corpuscular Hemoglobin 28 PG (27-34); Mean Corpuscular Volume 86.4 FL (87-102); Monocytes # 0.6 10*3/uL (0.11-0.8); Monocytes % 6.6 % (1.7-12.7); Neutrophils % 56.8 % (38.7-73.9); Platelet Count 457 T/CUMM (130-400); Red Blood Count 2.95 MC/CUMM (3.8-5.5); Red Cell Distribution Width 20.2 % (9.3-17.3); White Blood Count 8.8 T/CUMM (4-12)
[2016-09-25 06:55] LABS: Band Neutrophils 1 % (0-10); Eosinophils 14 % (0-10); Hypochromasia 1+; Lymphocytes 18 % (20-55); Ovalocytes Slight; Platelet Estimate Adequate; Segmented Neutrophils 63 % (50-85); Total Cells Counted 100
[2016-09-25 07:03] LABS: Calcium 7.2 MG/DL (8.5-10.1); Magnesium 1.8 MG/DL (1.8-2.4); Osmolality,Calculated 298.1 MOS/KG (273-304); Potassium 3.6 MMOL/L (3.5-5.1)
--- NOTE | 2016-09-25 07:38 | Urology Progress Note ---
Urology - PN: Subj Interval history: I discussed the ureteral stent with the patient and her again and they again at this time do not want a stent in. I will leave that decision up to the patient her and nephrology. I will see again if needed Exam - Constitutional Vitals: Period Temp Pulse Resp BP Sys/Faith Pulse Ox Last 24 Hr 97.6 F-98.8 F 59-102 14-20 122-155/50-70 95-100 Results - Labs CBC & BMP: 09/25/16 04:58 09/25/16 04:58 Specialty Discharge - Follow Up or Referrals
[2016-09-25] MEDS: PANTOPRAZOLE 40 MG TABLET PO SCH (09:07)
[2016-09-25] MEDS: levETIRAcetam 500 MG TABLET PO SCH ×2 (09:07→22:12)
[2016-09-25] MEDS: ASPIRIN CHEW 81 MG TABLET PO SCH (09:07)
[2016-09-25] MEDS: LACTOBACILLUS ACIDOPHILUS/BULGARICUS CAPLET PO SCH (09:07)
[2016-09-25] MEDS: ISOSORBIDE MONONITRATE 20 MG TABLET PO SCH (09:07)
[2016-09-25] MEDS: amLODIPine 10 MG TABLET PO SCH (09:07)
[2016-09-25] MEDS: METOPROLOL TARTRATE 50 MG TABLET PO SCH ×2 (09:07→22:12)
[2016-09-25] MEDS: MAGNESIUM CHLORIDE 64 MG TABLET PO SCH ×2 (09:07→22:12)
[2016-09-25] MEDS: CLOPIDOGREL 75 MG TABLET PO SCH (09:08)
[2016-09-25] MEDS: BUDESONIDE/FORMOTEROL 160-4.5 INHALER 6 GM INH SCH ×2 (09:08→22:11)
[2016-09-25] MEDS: CALCIUM (CARBONATE) 500 MG TABLET PO SCH ×3 (09:08→17:40)
[2016-09-25] MEDS: ATORVASTATIN 40 MG TABLET PO SCH (09:08)
[2016-09-25] MEDS: CLOTRIMAZOLE 1% CREAM 15 GM TUBE TOP SCH ×2 (09:08→22:13)
[2016-09-25] MEDS: DESITIN 4OZ/NYSTATIN 15 GRAM MIXTURE PASTE TOP SCH ×2 (09:08→22:13)
[2016-09-25] MEDS: LACOSAMIDE 50 MG TABLET PO SCH ×2 (09:08→22:12)
[2016-09-25] MEDS: INSULIN ASPART PROTAMINE/ASPART 70/30 100 UNIT/ML SUBCUT SCH ×2 (09:09→17:57)
[2016-09-25] MEDS: INSULIN LISPRO 100 UNIT/ML SUBCUT SCH ×4 (09:09→22:11)
--- NOTE | 2016-09-25 09:18 | Infectious Disease Progress ---
Assessment and Plan (1) Diarrhea Status: Acute Assessment and plan: C. difficile infection confirmed that she is on oral vancomycin with resolution of the diarrhea. Complete 14 days of oral vancomycin therapy, so about 7 more days to go. I am okay with the patient going home today. She was educated about C. difficile and advised that if she takes antibiotics in the future C. difficile could come back and it could be worse. Advised that she probably would need C. difficile treatment [secondary prophylaxis] if she ever requires a course of antibiotics. Current Visit: Yes (2) Candidal intertrigo Status: Acute Assessment and plan: This was quite severe Edilma intertrigo again due to her extensive antibiotic exposure over the past several months. It is almost resolved. Recommendations: Continue clotrimazole cream until rash is resolved. Current Visit: Yes (3) Bakbe-rt-rytoedo kidney injury Status: Acute Assessment and plan: Probably multifactorial including worsening hydronephrosis and also dehydration from the diarrhea. Improved since admission. Current Visit: Yes (4) Septic shock Status: Resolved Assessment and plan: I think the C. difficile infection was the cause of her septic shock. This is resolved and patient looks much better overall. Current Visit: Yes (5) Urinary tract infection Status: Ruled-out Assessment and plan: Current Visit: Yes (6) Uropathy, obstructive Status: Acute Assessment and plan: She has worsening hydronephrosis. No stents present at the moment. She may end up on dialysis soon. Current Visit: No (7) Diabetes mellitus Status: Chronic Current Visit: No Qualifiers: Diabetes mellitus type: type 2 Diabetes mellitus complication status: with kidney complications Chronic kidney disease stage: stage 3 (moderate) (8) Hypertension Status: Chronic Current Visit: No Qualifiers: Hypertension type: essential hypertension Qualified Code(s): I10 - Essential (primary) hypertension (9) Intestinal infection due to Clostridium difficile Status: Acute Assessment and plan: Oral vancomycin as above. Current Visit: Yes Infectious Disease - PN: Subj Interval history: Patient doing okay, diarrhea has resolved. She has not had fever. Eating well. Says she feels like she is ready to go home. is at bedside and he agrees. Infectious Disease Exam (PN) - Constitutional Vitals: Temp Pulse Resp BP Pulse Ox 97.8 F 55 L 18 151/67 100 09/25/16 04:00 09/25/16 07:55 09/25/16 07:55 09/25/16 04:00 09/25/16 07:55 General appearance: no acute distress Exam: General appearance: Comfortable - Eye Eye exam: Present: EOMI. no icterus Pupils: Present: ANUSHA - ENT ENT exam: no oral exudates - Respiratory Respiratory exam: vesicular BS, no crepitations or wheezes - Cardiovascular Cardiovascular exam: regular rate and rhythm, no murmurs - GI/Abdominal GI/Abdominal exam: normal bowel sounds, soft, non-tender, no organomegaly or mass - Extremities Exam Extremities exam: Right lower extremity edema, healed left A-K amputation stump. - Skin Skin exam: Erythematous exfoliation rash in submammary folds just about resolved. Rash in groin creases also just about resolved. Results - Labs CBC & BMP: 09/25/16 04:58 09/25/16 04:58 Lab Results: I have reviewed the past 24 hour labs Specialty Discharge - Follow Up or Referrals
--- NOTE | 2016-09-25 12:42 | Hospitalist Progress Note ---
Assessment and Plan (1) C. difficile diarrhea Status: Acute Assessment and plan: cont vancomycin liquid Current Visit: Yes (2) Delirium Status: Acute Assessment and plan: due to metabolic encephalopathy, patient at baseline Current Visit: Yes (3) Anemia Status: Chronic Assessment and plan: hgb continues to drift down while on plavix and asa, will ask Dr. Real to see Current Visit: No (4) COPD (chronic obstructive pulmonary disease) Status: Chronic Assessment and plan: duoneb Current Visit: No (5) Hypertension Status: Chronic Assessment and plan: controlled with norvasc Current Visit: No Qualifiers: Hypertension type: essential hypertension Qualified Code(s): I10 - Essential (primary) hypertension (6) Insulin dependent diabetes mellitus Status: Chronic Assessment and plan: increase 70/30 10 units SQ bid Current Visit: No (7) Septic shock Status: Resolved Assessment and plan: due to c. diff. Current Visit: Yes (8) CKD (chronic kidney disease) stage 4, GFR 15-29 ml/min Problem details: Stable at best creatinine in years. Status: Acute Assessment and plan: improved and stabilized stents removed. Current Visit: No (9) Hypokalemia Status: Acute Assessment and plan: resolved Current Visit: Yes (10) Candidal intertrigo Status: Acute Assessment and plan: Clotrimazole 1% cream twice daily Current Visit: Yes (11) Urinary tract infection Status: Ruled-out Assessment and plan: growing elvia tropicalis. No treatment needed for Dr. Loving Current Visit: Yes (12) Seizure Status: Acute Assessment and plan: vimpat and keppra Current Visit: Yes Hospitalist: Subjective Interval history: Patient's creatinine is really improved with hydration. Talk to in the room yesterday about her going to swing bed and he really does not want her to go to swing bed. The problem is as he keeps bringing her back to the hospital for everything because he cannot care for at home. He reports having several daughters and [id number] that her nurses but they need to be more involved. Patient continues to deteriorate. Exam - Constitutional Vitals: Period Temp Pulse Resp BP Sys/Faith Pulse Ox Last 24 Hr 97.8 F-98.8 F 55-102 14-20 129-155/55-70 94-100 Exam: Heart Rate-[RRR] Lungs-[CTAB] GI-[+bs soft, NT] Ext-[anasarca] Neuro [Motor 5/5], [alert and oriented times 3] psych [normal mood and affect] General [no acute distress] Skin diffuse purpura Results - Labs CBC & BMP: 09/25/16 04:58 09/25/16 04:58 Lab Results: I have reviewed the past 24 hour labs Labs: blood cx times 2 negative Specialty Discharge - Follow Up or Referrals
[2016-09-25] MEDS: DEXTROSE 5% 1,000 ML IV SCH (13:14)
--- NOTE | 2016-09-25 13:19 | Gastrointestinal Consult Note ---
Assessment and Plan (1) Anemia Status: Acute Assessment and plan: 09/25-Trending downward hgb from admission at 10.3 to 8.3 w/o overt bleeding or other associated symptoms. Recent EGD in July with ulcerative esophagitis, On Plavix therapy at this time. Monitor serial HH. Plan and addendum to follow by Dr Flores. Current Visit: Yes History of Present Illness Chief complaint: Anemia History of present illness: Ms. Flores is a 66 year old female who was admitted to the hospital with after being found unresponsive. Pt is a poor historian therefore information is obtained from chart review. Pt is noted to be found on 09/18 by her family unresponsive and brought to the hospital for evaluation. She was felt to have hypoglycemia at that time however did not respond to oral glucose at that time. She was found on admissoin to have urinary tract infection with urosepsis and started on IV antibiotics at that time. She has a history of acute on chronic kidney injury. She was also found to have clostridium difficile on admission with oral vancomycin.She is only have one loose stool daily per patient and this has improved. Pt was noted to have a drop in her hemoglobin since admission and GI consulted to follow this. Pt was seen by Dr Real in July of this year, during last inpatient stay for urosepsis, for anemia and heme positive stools on Plavix. This was discontinued at that time and she had an EGD with findings of ulcerative esophagitis and was able to undergo dilation at that time. Recommendation for colonoscopy was made in several weeks after convalescence however pt returned to the 6 weeks later for this current inpatient stay. She denies any overt bleeding. She denies any abdominal pain, nausea or vomiting. Pt Plavix is noted to be continued at this time. Last colonoscopy noted in 2009 with findings of internal hemmorhoids. Home Medications Medication Instructions Recorded Confirmed Type Amitriptyline [Elavil] 10 mg PO BEDTIME 08/04/16 09/20/16 History Atorvastatin [Lipitor] 40 mg PO DAILY 08/04/16 09/20/16 History Escitalopram [Lexapro] 20 mg PO DAILY 08/04/16 09/20/16 History levETIRAcetam [Keppra] 1,000 mg PO BID 08/04/16 09/20/16 History Albuterol/Ipratropium Neb [Duoneb] 3 ml RESP TX RT Q6H PRN #0 08/07/16 Rx Budesonide/Formoterol 160-4.5 2 puff INH BID inhaler 08/07/16 09/20/16 Rx [Symbicort 160-4.5] Amoxicillin/Clav Tab [Augmentin 875 mg PO Q12H 09/20/16 09/20/16 History Tab] Aspirin 81 mg PO DAILY 09/20/16 09/20/16 History Benztropine Tab [Cogentin Tab] 1 mg PO DAILY 09/20/16 09/20/16 History Calcium (Carbonate) [Oscal 500] 500 mg PO TID W/MEALS 09/20/16 09/20/16 History Clopidogrel [Plavix] 75 mg PO DAILY 09/20/16 09/20/16 History Insulin Aspart Prot/Asp 70/30 6 unit SUBCUT BID 09/20/16 09/20/16 History [NovoLOG Mix 70/30] Isosorbide Mononitrate 10 mg PO DAILY 09/20/16 09/20/16 History Lacosamide [Vimpat] 100 mg PO BID 09/20/16 09/20/16 History Metoprolol Tartrate Tab [Lopressor 50 mg PO BID 09/20/16 09/20/16 History Tab] Pantoprazole Tab [Protonix Tab] 40 mg PO DAILY 09/20/16 09/20/16 History amLODIPine [Norvasc] 10 mg PO DAILY 09/20/16 09/20/16 History risperiDONE [Risperdal] 0.25 mg PO BID 09/20/16 09/20/16 History Allergies Allergy/AdvReac Type Severity Reaction Status Date / Time Zolpidem [From Ambien] AdvReac Intermediate Anxiety/Con Verified 09/18/16 19:18 fusion silk tape AdvReac Intermediate Redness of Uncoded 09/18/16 19:18 Skin Medical,Surgical,& Family Hx - Medical History Cardio: History of: CHF, CAD, Hypertension, PVD, Cardiovascular Problems Psychological: History of: Depression No history of: Psychiatric Problems Neurology: History of: Cerebrovascular Accident, Seizures No history of: Neurological Problems HEENT: History of: Dental Problems (Dentures) No history of: Eye Problem Endocrine: History of: Diabetes Mellitus (IDDM), Diabetes Mellitus (NIDDM) Rheumatology: No history of;: Rheumatological Problems Respiratory: History of: COPD, Respiratory Problems Renal: History of: Renal Failure (ureteral stricture and hydronephrosis, stent change every 6 months), Renal Problems (CKD stage IV, One Kidney) Genitourinary: History of: Recurring Urinary Tract Infections Gastrointestinal: History of: GERD, GI Problems (ABDOMINAL AORTIC ANEURYSM) No history of: Diverticulitis/ Diverticulosis, Gastrointestinal Bleed, Hepatitis Musculoskeletal: History of: Amputation (LEFT AKA) Hematology: No history of: Blood Disorders Reproductive: No history of: Reproductive Problems Other: History of: Anesthesia Reactions (PT STATES SHE WAS HARD TO AWAKE AND SPENT 15 DAYS IN ICU.) - Surgical History Cardiac Surgeries: Sugical HX of: Cardiac Catheterization, Cardiac Surgery Thoracic Surgeries: Surgical HX of;: Kidney (Renal Surgery) (One Kidney) Abdominal Surgeries: Surgical HX of: Abdominal Surgery (vascular bypass surgery) Reproductive Surgeries: Surgical HX of;: Section (X 1), Gynecologic Surgery, Tubal Ligation - Family History Family History: Reports;: Family Cancer (Mother (Breast)), Family Diabetes ( Sister, Brother), Family Heart Disease (Mother, Brother, Sister), Family Hypertension (Sister, Brother, Mother) Denies;: Family Anesthesia Reaction, Family Hematology, Family Psychiatric Problems, Family Stroke, Additional Family History - Social History Smoking Status: Former smoker Frequency of Alcohol Use: None Type of Drug Use: None 12 point system: reviewed and no additional remarkable complaints except as stated - Constitutional Constitutional: Present: as per HPI - EENT Eyes: Present: as per HPI Ears: Present: as per HPI Nose, mouth and throat: Present: as per HPI - Cardiovascular Cardiovascular: Present: as per HPI - Respiratory Respiratory: Present: as per HPI - Gastrointestinal Gastrointestinal: Present: as per HPI - Genitourinary Genitourinary: Present: as per HPI - Musculoskeletal Musculoskeletal: Present: as per HPI - Neurological Neurological: Present: as per HPI - Psychiatric Psychiatric: Present: as per HPI - Endocrine Endocrine: Present: as per HPI Exam - Constitutional Vitals: Period Temp Pulse Resp BP Sys/Faith Pulse Ox Last 24 Hr 97.8 F-98.8 F 55-102 14-20 129-155/55-70 94-100 General appearance: normal weight, no acute distress - Head Head exam: Present: normal inspection, normocephalic - Eye Eye exam: Present: other (lids and conjunctiva unremarakble). Absent: scleral icterus - ENT ENT exam: Present: normal exam, normal oropharynx - Neck Neck exam: Present: normal inspection - Respiratory Respiratory exam: Present: clear to auscultation bilaterally. Absent: rales, rhonchi, wheezes - Cardiovascular Cardiovascular exam: Present: regular rate and rhythm. Absent: diastolic murmur , JVD, systolic murmur - GI/Abdominal GI/Abdominal exam: Present: normal bowel sounds, soft. Absent: ascites, distended, mass, organomegaly, tenderness - Extremities Exam Extremities exam: Present: normal inspection, full ROM - Back Exam Back exam: Present: normal inspection - Neurological Exam Neurological exam: Present: alert, oriented X3 - Psychiatric Psychiatric exam: Present: normal affect, normal mood - Skin Skin exam: Present: normal color, warm, dry, other (multiple areas of ecchymosis ) Results - Labs CBC & BMP: 09/25/16 04:58 09/25/16 04:58 Lab Results: I have reviewed the past 24 hour labs Specialty Discharge - Follow Up or Referrals
--- NOTE | 2016-09-25 13:22 | Nephrology Progress Note ---
Nephrology - PN: Subj Interval history: The patient is doing acceptable. Serum creatinine is now 2.2. No other acute changes. Exam (PN)-Nephrology - Vital Signs Vital signs: Period Temp Pulse Resp BP Sys/Faith Pulse Ox Last 24 Hr 97.8 F-98.8 F 55-102 14-20 129-155/55-70 94-100 - General Appearance General appearance: well-developed, well-nourished EENT: ATNC Neck: supple Respiratory: clear Cardiology: regular rate, regular rhythm Gastrointestinal: normoactive bowel sounds, no tenderness Neurologic: no focal deficit, alert and oriented x3 - Lab 09/25/16 04:58 09/25/16 04:58 Most recent lab results ABG pH 7.331 (7.35-7.45) L 09/18/16 20:06 ABG pCO2 30.0 MM HG (35-48) L 09/18/16 20:06 ABG pO2 125.4 MM HG (80-95) H 09/18/16 20:06 ABG HCO3 15.5 MMOL/L (20-26) L 09/18/16 20:06 ABG O2 Saturation 97.4 % (95-100) 09/18/16 20:06 Calcium 7.2 MG/DL (8.5-10.1) L 09/25/16 04:58 Magnesium 1.8 MG/DL (1.8-2.4) 09/25/16 04:58 Assessment and Plan (1) Acute renal failure Status: Acute Current Visit: No (2) Chronic kidney disease, stage IV (severe) Problem details: Improved creatinine down to 2.4 from 2.6 yesterday. No acute indication for renal replacement therapy at this time. Status: Chronic Current Visit: No (3) Hypertension Status: Chronic Current Visit: No Qualifiers: Qualified Code(s): I10 - Essential (primary) hypertension (4) Diabetes mellitus Status: Chronic Current Visit: No (5) Single kidney Status: Chronic Current Visit: No (6) Hypertension Status: Chronic Current Visit: No Qualifiers: Qualified Code(s): I10 - Essential (primary) hypertension (7) COPD (chronic obstructive pulmonary disease) Status: Chronic Current Visit: No Qualifiers: Qualified Code(s): J44.9 - Chronic obstructive pulmonary disease, unspecified Specialty Discharge - Follow Up or Referrals
--- NOTE | 2016-09-25 13:51 | XRay Report ---
Referring Physician: Tana Echevarria Exam: XR chest 1V portable Date: September 25, 2016 at 1:23 PM Reason: Shortness of breath Comparison: Chest one view portable September 18, 2016 Findings: A right IJ catheter is in place with its distal tip within the SVC. The cardiac silhouette is again mildly enlarged, and the patient is status post sternotomy. No focal consolidation, pneumothorax or pleural effusion is identified. No acute osseous process is seen. Impression: 1. Mild cardiomegaly. 2. No acute pulmonary process is identified. PROCEDURE INTERPRETED AT [facility]PARTMENT OF RADIOLOG[facility] Final Report Signed by: Dr. Sindhu Rodriguez
--- NOTE | 2016-09-25 16:49 | Sleep Medicine Consult ---
Assessment and Plan (1) Obstructive sleep apnea Status: Chronic Assessment and plan: Mrs. Flores has a positive history for severe obstructive sleep apnea and was prescribed CPAP therapy for treatment. She has a functioning device at home as well as needed supplies. I spent awhile reviewing CELINA and the importance of nightly treatment especially given the state of her health currently. Her verbalized understanding and states that he will try to get her to wear her mask again. For any issues with mask fit, he can simply contact [employer] which is the [employer] equipment company that she received the device and supplies from. DME companies work closely with patient's to ensure they have proper mask fit as well as comfort with therapy. Without treatment, I explained that her underlying heart disease as well as renal function would continue to be compromised. Since they live closer to the [facility] sleep clinic, follow-up will be at that facility in 4 weeks. If there are any concerns regarding mask fit or proper device function prior to that time they may contact the sleep clinic. Current Visit: No (2) Sleep-related nonobstructive alveolar hypoventilation, idiopathic Status: Acute Assessment and plan: In addition to severe CELINA, Mrs. Flores continued to experience persistent oxygen desaturations requiring not only CPAP therapy but also supplemental nocturnal oxygen at 4 L/min. The oxygen concentrator and CPAP device are currently in her home. Her is to assist her with mask application nightly to ensure compliance with therapy. Current Visit: Yes History of Present Illness Chief complaint: history of CELINA/noncompliant History of present illness: Ms. Flores is a 66 year old ill-appearing female who was brought into the emergency room by ambulance on September 18. She was admitted and required several days of ICU care. Her admitting diagnosis included septic shock for urinary tract infection along with her significant history of hypertension, diabetes, coronary artery disease, COPD and seizure disorder. Sleep medicine was consulted due to her history of obstructive sleep apnea. She was first evaluated for sleep disorder in 2014 and tested positive for severe obstructive sleep apnea and sleep-related nonobstructive alveolar hypoventilation. Her treatment recommendations were CPAP at 15 cm and supplemental nocturnal oxygen at 4 L/min due to persistent oxygen desaturations. She received a CPAP device along with oxygen concentrator and her , who is giving her history today , states that the device has remained beside the doorway. She used the device a few nights but was uncomfortable with the mask. The patient nor family has not contacted the DME provider to discuss alternative mask options and have not maintained routine follow up at the [facility]. Since her original diagnosis, her health has continued to deteriorate. She has been bedridden for close to a year and does sleep in a hospital bed with her head elevated. Her states her snoring and abnormal breathing have improved since she stopped smoking. He states she spends more time asleep more than awake. Home Medications Medication Instructions Recorded Confirmed Type Amitriptyline [Elavil] 10 mg PO BEDTIME 08/04/16 09/20/16 History Atorvastatin [Lipitor] 40 mg PO DAILY 08/04/16 09/20/16 History Escitalopram [Lexapro] 20 mg PO DAILY 08/04/16 09/20/16 History levETIRAcetam [Keppra] 1,000 mg PO BID 08/04/16 09/20/16 History Albuterol/Ipratropium Neb [Duoneb] 3 ml RESP TX RT Q6H PRN #0 08/07/16 Rx Budesonide/Formoterol 160-4.5 2 puff INH BID inhaler 08/07/16 09/20/16 Rx [Symbicort 160-4.5] Amoxicillin/Clav Tab [Augmentin 875 mg PO Q12H 09/20/16 09/20/16 History Tab] Aspirin 81 mg PO DAILY 09/20/16 09/20/16 History Benztropine Tab [Cogentin Tab] 1 mg PO DAILY 09/20/16 09/20/16 History Calcium (Carbonate) [Oscal 500] 500 mg PO TID W/MEALS 09/20/16 09/20/16 History Clopidogrel [Plavix] 75 mg PO DAILY 09/20/16 09/20/16 History Insulin Aspart Prot/Asp 70/30 6 unit SUBCUT BID 09/20/16 09/20/16 History [NovoLOG Mix 70/30] Isosorbide Mononitrate 10 mg PO DAILY 09/20/16 09/20/16 History Lacosamide [Vimpat] 100 mg PO BID 09/20/16 09/20/16 History Metoprolol Tartrate Tab [Lopressor 50 mg PO BID 09/20/16 09/20/16 History Tab] Pantoprazole Tab [Protonix Tab] 40 mg PO DAILY 09/20/16 09/20/16 History amLODIPine [Norvasc] 10 mg PO DAILY 09/20/16 09/20/16 History risperiDONE [Risperdal] 0.25 mg PO BID 09/20/16 09/20/16 History Allergies Allergy/AdvReac Type Severity Reaction Status Date / Time Zolpidem [From Ambien] AdvReac Intermediate Anxiety/Con Verified 09/18/16 19:18 fusion silk tape AdvReac Intermediate Redness of Uncoded 09/18/16 19:18 Skin - Constitutional Constitutional: Present: daytime sleepiness, fatigue, lethargy, malaise, weakness. Absent: night sweats, stops breathing during sleep - EENT Nose, mouth and throat: Present: headache(s) - Cardiovascular Cardiovascular: Present: dyspnea on exertion, orthopnea. Absent: chest pain at rest, chest pain with activity, palpitations - Respiratory Respiratory: Present: cough. Absent: wheezing, pain on inspiration - Gastrointestinal Gastrointestinal: Present: heartburn. Absent: abdominal pain - Genitourinary Genitourinary: Present: difficulty urinating, urinary frequency, urinary incontinence - Musculoskeletal Musculoskeletal: Present: muscle weakness - Neurological Neurological: Present: behavioral changes, convulsions - Psychiatric Psychiatric: Present: confusion, depression. Absent: anxiety - Endocrine Endocrine: Present: fatigue - Hematologic/Lymphatic Hematologic/Lymphatic: Present: easy bruising Exam (Pulmonay) H&P - Constitutional Vitals: Period Temp Pulse Resp BP Sys/Faith Pulse Ox Last 24 Hr 97.8 F-98.8 F 55-102 14-20 129-152/55-70 94-100 General appearance: morbidly obese, disheveled - Head Head exam: Present: normocephalic, atraumatic - ENT ENT exam: Present: other (Mallampati class IV/small mouth) - Expanded ENT Exam ENT Exam Mouth exam: Present: dry mucosa, muffled voice - Neck Neck exam: Absent: lymphadenopathy, thyromegaly - Respiratory Respiratory exam: Present: clear to auscultation bilaterally. Absent: rhonchi, wheezes - Cardiovascular Cardiovascular exam: Present: regular rate and rhythm - GI/Abdominal GI/Abdominal exam: Present: normal bowel sounds, soft. Absent: tenderness - Extremities Exam Extremities exam: Present: normal capillary refill, other (left AKA) - Neurological Exam Neurological exam: Present: alert - Psychiatric Psychiatric exam: Present: flat affect - Skin Skin exam: Present: warm (diffuse bruising on upper extremities) Medical,Surgical,& Family Hx - Medical History Cardio: History of: CHF, CAD, Hypertension, PVD, Cardiovascular Problems Psychological: History of: Depression No history of: Psychiatric Problems Neurology: History of: Cerebrovascular Accident, Seizures No history of: Neurological Problems HEENT: History of: Dental Problems (Dentures) No history of: Eye Problem Endocrine: History of: Diabetes Mellitus (IDDM), Diabetes Mellitus (NIDDM) Rheumatology: No history of;: Rheumatological Problems Respiratory: History of: COPD, Respiratory Problems Renal: History of: Renal Failure (ureteral stricture and hydronephrosis, stent change every 6 months), Renal Problems (CKD stage IV, One Kidney) Genitourinary: History of: Recurring Urinary Tract Infections Gastrointestinal: History of: GERD, GI Problems (ABDOMINAL AORTIC ANEURYSM) No history of: Diverticulitis/ Diverticulosis, Gastrointestinal Bleed, Hepatitis Musculoskeletal: History of: Amputation (LEFT AKA) Hematology: No history of: Blood Disorders Reproductive: No history of: Reproductive Problems Other: History of: Anesthesia Reactions (PT STATES SHE WAS HARD TO AWAKE AND SPENT 15 DAYS IN ICU.) - Surgical History Cardiac Surgeries: Sugical HX of: Cardiac Catheterization, Cardiac Surgery Thoracic Surgeries: Surgical HX of;: Kidney (Renal Surgery) (One Kidney) Abdominal Surgeries: Surgical HX of: Abdominal Surgery (vascular bypass surgery) Reproductive Surgeries: Surgical HX of;: Section (X 1), Gynecologic Surgery, Tubal Ligation - Family History Family History: Reports;: Family Cancer (Mother (Breast)), Family Diabetes ( Sister, Brother), Family Heart Disease (Mother, Brother, Sister), Family Hypertension (Sister, Brother, Mother) Denies;: Family Anesthesia Reaction, Family Hematology, Family Psychiatric Problems, Family Stroke, Additional Family History - Social History Smoking Status: Former smoker Frequency of Alcohol Use: None Type of Drug Use: None Results - Labs CBC & BMP: 09/25/16 04:58 09/25/16 04:58 Specialty Discharge - Follow Up or Referrals
[2016-09-26] MEDS: VANCOMYCIN 50 MG/ML 60 ML/BOTTLE PO SCH ×4 (00:24→20:53)
[2016-09-26] MEDS: ALBUTEROL/IPRATROPIUM 3 ML NEB RESP TX SCH ×4 (03:10→20:54)
[2016-09-26 07:06] LABS: Basophils % 0.4 % (0.0-0.8); Eosinophils # 0.8 10*3/uL (0.0-0.87); Hematocrit 24.8 VOL% (35.7-47.0); Immature Granulocytes % 0.6 %; Immature Granulocytes Absolute 0.06 #; Lymphocytes # 2.4 10*3/uL (1.4-4.0); Lymphocytes % 24.8 % (21.3-54.2); Mean Corpuscular HGB Conc 32.3 GM/DL (32-36); Mean Corpuscular Hemoglobin 28 PG (27-34); Mean Platelet Volume 8.6 FL (9.6-12.0); Monocytes # 0.7 10*3/uL (0.11-0.8); Neutrophils # 5.7 10*3/uL (1.4-7.4); Neutrophils % 59.2 % (38.7-73.9); Platelet Count 449 T/CUMM (130-400); Red Blood Count 2.85 MC/CUMM (3.8-5.5); Red Cell Distribution Width 20.3 % (9.3-17.3); White Blood Count 9.6 T/CUMM (4-12)
[2016-09-26 07:32] LABS: Calcium 7.6 MG/DL (8.5-10.1); Magnesium 1.5 MG/DL (1.8-2.4); Osmolality,Calculated 298.1 MOS/KG (273-304); Potassium 3.6 MMOL/L (3.5-5.1)
--- NOTE | 2016-09-26 09:02 | Gastrointestinal Progress Note ---
Assessment and Plan (1) Anemia Status: Acute Assessment and plan: 09/26-hemoglobin at 8, no overt bleeding. For tentative discharge today per patient. Patient to call back and schedule colonoscopy after discharge and convalescence from current illness. Plan an addendum to follow by Dr. Real. 09/25-Trending downward hgb from admission at 10.3 to 8.3 w/o overt bleeding or other associated symptoms. Recent EGD in July with ulcerative esophagitis, On Plavix therapy at this time. Monitor serial HH. Plan and addendum to follow by Dr Real. Current Visit: Yes Gastroenterology - PN: Subj Interval history: CC: Anemia Patient is seen awake and alert sitting up in bed eating breakfast. Spouse at bedside. Patient denies any overt bleeding. Denies any abdominal pain nausea or vomiting. Hemoglobin is noted to be trending slightly downward to 8. She continues with loose stools however she did test positive for Clostridium difficile. She denies any melena or hematochezia associated with this. Patient states that she is for discharge home today however feels she is still too weak to consider colonoscopy at this point. She is to call back Dr. Real's office when she feels like she is ready and discuss scheduling this at that time. ROS: Denies shortness of breath or chest pain Exam (Progress Note) - Constitutional Vitals: Period Temp Pulse Resp BP Sys/Faith Pulse Ox Last 24 Hr 97.6 F-98.8 F 65-81 16-20 123-156/51-67 90-100 - Other Additional findings: General appearance: normal weight, no acute distress - Head Head exam: Present: normal inspection, normocephalic - Eye Eye exam: Present: other (lids and conjunctiva unremarakble). Absent: scleral icterus - ENT ENT exam: Present: normal exam, normal oropharynx - Neck Neck exam: Present: normal inspection - Respiratory Respiratory exam: Present: clear to auscultation bilaterally. Absent: rales, rhonchi, wheezes - Cardiovascular Cardiovascular exam: Present: regular rate and rhythm. Absent: diastolic murmur , JVD, systolic murmur - GI/Abdominal GI/Abdominal exam: Present: normal bowel sounds, soft. Absent: ascites, distended, mass, organomegaly, tenderness - Extremities Exam Extremities exam: Present: normal inspection, full ROM - Back Exam Back exam: Present: normal inspection - Neurological Exam Neurological exam: Present: alert, oriented X3 - Psychiatric Psychiatric exam: Present: normal affect, normal mood - Skin Skin exam: Present: normal color, warm, dry, other (multiple areas of ecchymosis ) Results - Labs CBC & BMP: 09/26/16 06:37 09/26/16 06:37 Lab Results: I have reviewed the past 24 hour labs Specialty Discharge - Follow Up or Referrals
[2016-09-26] MEDS: INSULIN ASPART PROTAMINE/ASPART 70/30 100 UNIT/ML SUBCUT SCH ×2 (09:18→20:53)
[2016-09-26] MEDS: INSULIN LISPRO 100 UNIT/ML SUBCUT SCH ×3 (09:19→20:53)
[2016-09-26] MEDS: amLODIPine 10 MG TABLET PO SCH (09:19)
[2016-09-26] MEDS: LACTOBACILLUS ACIDOPHILUS/BULGARICUS CAPLET PO SCH (09:20)
[2016-09-26] MEDS: LACOSAMIDE 50 MG TABLET PO SCH (09:20)
[2016-09-26] MEDS: ISOSORBIDE MONONITRATE 20 MG TABLET PO SCH (09:20)
[2016-09-26] MEDS: levETIRAcetam 500 MG TABLET PO SCH (09:21)
[2016-09-26] MEDS: CLOPIDOGREL 75 MG TABLET PO SCH (09:21)
[2016-09-26] MEDS: ATORVASTATIN 40 MG TABLET PO SCH (09:21)
[2016-09-26] MEDS: MAGNESIUM CHLORIDE 64 MG TABLET PO SCH (09:21)
[2016-09-26] MEDS: ASPIRIN CHEW 81 MG TABLET PO SCH (09:21)
[2016-09-26] MEDS: PANTOPRAZOLE 40 MG TABLET PO SCH (09:22)
[2016-09-26] MEDS: CALCIUM (CARBONATE) 500 MG TABLET PO SCH ×3 (09:22→20:53)
[2016-09-26] MEDS: DESITIN 4OZ/NYSTATIN 15 GRAM MIXTURE PASTE TOP SCH (09:22)
[2016-09-26] MEDS: METOPROLOL TARTRATE 50 MG TABLET PO SCH (09:22)
[2016-09-26] MEDS: BUDESONIDE/FORMOTEROL 160-4.5 INHALER 6 GM INH SCH (09:23)
[2016-09-26] MEDS: CLOTRIMAZOLE 1% CREAM 15 GM TUBE TOP SCH (09:23)
[2016-09-26] MEDS: DEXTROSE 5% 1,000 ML IV SCH (09:24)
[2016-09-26] MEDS ORDERED: MAGNESIUM SULF RIDER 2 GM in PREMIX 1 EACH IV ONE (09:48)
--- NOTE | 2016-09-26 11:14 | Event Note ---
Patient doing well, no recurrence of diarrhea and no other problems. She tells me she is going home today. She will be on oral vancomycin for 6 more days.
--- NOTE | 2016-09-26 11:34 | Discharge Summary ---
Hospital Course - Hospital Course Hospital Course: 66 year old female brought to the emergency room unresponsive after being found by her family around noon due to low glucose. I have admitted her on multiple occasions she is chronically ill and belongs in a long term. Her refuses to place her or let her go to rehab but is incapable of taking care of her. Patient has a diagnosis of C. difficile and was already on treatment for C. difficile at home. Dr. Loving was consulted and she recommended 6 more days of oral vancomycin. knows he has some at home but is unsure of how much he has left. Patient is usually on frequent antibiotics for UTIs. Dr. Sellers has seen her and is informed me that all of her stents have been removed as you believe they were contributing to her UTIs. Her urine culture this admission grew out Edilma tropicalis which is does not need to be treated. Her blood cultures 2 are negative no growth. C. difficile remains positive. 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 I am stopping her Plavix as she is to have anything too many problems with anemia. Her hemoglobin is 8 and she received 2 units of packed red blood cells. Dr. Real was consulted for anemia but does not plan on any intervention due to high risk of complications. was informed of their decision. She was severely dehydrated due to receiving Lasix and poor p.o. intake. Her creatinine on admission was 4.6 with hydration and came down to 2.3. Patient received gentle hydration during this admission. She continues to have swelling but her echocardiogram showed a normal ejection fraction. Dr. Marcano has been assisting us with her renal failure and we appreciate his help. Patient also has untreated sleep apnea. Fallon Glez NP from sleep medicine saw her yesterday. Patient already has a machine but is noncompliant with wearing it. They recommend contacting the [employer] company working with him to ensure a properly fitting mask. Patient's reports having nurses in the family but in less they are going to be over there on a daily basis she will continue to deteriorate. - Time spent with patient Time with patient DS: Greater than 30 minutes (50 min) Diagnosis - Discharge Diagnosis (1) C. difficile diarrhea Status: Acute (2) Delirium Status: Acute (3) Anemia Status: Chronic (4) COPD (chronic obstructive pulmonary disease) Status: Chronic (5) Hypertension Status: Chronic (6) Insulin dependent diabetes mellitus Status: Chronic (7) Septic shock Status: Resolved (8) CKD (chronic kidney disease) stage 4, GFR 15-29 ml/min Status: Acute (9) Hypokalemia Status: Acute (10) Candidal intertrigo Status: Acute (11) Urinary tract infection Status: Ruled-out (12) Seizure Status: Acute Specialty Discharge - Follow Up or Referrals Discharge Plan - Discharge Data Disposition: Home Health Service Condition at Discharge: Stable Discharge Diet: diabetic diet Activity: resume usual activities as tolerated Hygiene: no restrictions Weight Bearing at Discharge: other (up in chair as tolerated.) - Discharge Medications New Insulin Aspart Prot/Asp 70/30 [NovoLOG Mix 70/30] 10 unit SUBCUT BIDAC unit Magnesium Chloride [Slow Mag] 64 mg PO TID #90 tablet Vancomycin Liquid 250 mg PO Q6HR #120 ml Clotrimazole 1% Cream [Lotrimin 1% Cream] 1 applic TOP BID applic Continue Escitalopram [Lexapro] 20 mg PO DAILY Amitriptyline [Elavil] 10 mg PO BEDTIME Albuterol/Ipratropium Neb [Duoneb] 3 ml RESP TX RT Q6H PRN #0 PRN Reason: Shortness Of Breath/Wheezing amLODIPine [Norvasc] 10 mg PO DAILY Aspirin 81 mg PO DAILY risperiDONE [Risperdal] 0.25 mg PO BID Lacosamide [Vimpat] 100 mg PO BID Isosorbide Mononitrate 10 mg PO DAILY Metoprolol Tartrate Tab [Lopressor Tab] 50 mg PO BID Calcium (Carbonate) [Oscal 500] 500 mg PO TID W/MEALS Atorvastatin [Lipitor] 40 mg PO DAILY levETIRAcetam [Keppra] 1,000 mg PO BID Budesonide/Formoterol 160-4.5 [Symbicort 160-4.5] 2 puff INH BID inhaler Benztropine Tab [Cogentin Tab] 1 mg PO DAILY Pantoprazole Tab [Protonix Tab] 40 mg PO DAILY Changed Insulin Aspart Prot/Asp 70/30 [NovoLOG Mix 70/30] 10 unit SUBCUT BID #0 Discontinued Clopidogrel [Plavix] 75 mg PO DAILY Amoxicillin/Clav Tab [Augmentin Tab] 875 mg PO Q12H - Follow Up or Referral Follow Up: Clint Medellin MD [Physician] - 1 Week (needs weekly visits ) Eula Brower MD [Physician] - 2 Weeks Royer Marcano Jr., MD [Physician] - 2 Weeks Albaro Sellers MD [Physician] - 1 Month - Forms/Instructions Instructions: Sepsis (GEN) Exam - Constitutional Vitals: Period Temp Pulse Resp BP Sys/Faith Pulse Ox Last 24 Hr 97.6 F-98.8 F 68-81 18-20 123-156/51-67 90-98 General appearance: no acute distress, over weight - Respiratory Respiratory exam: Present: clear to auscultation bilaterally. Absent: rhonchi, wheezes - Cardiovascular Cardiovascular exam: Present: regular rate and rhythm, systolic murmur - GI/Abdominal GI/Abdominal exam: Present: normal bowel sounds, soft. Absent: tenderness Discharge Results Procedures and tests throughout hospitalization: Pending Orders 09/27/16 04:00 Comp Blood Count Auto Diff IN AM Labs on day of discharge: Labs from last 24 hours 09/26/16 09/26/16 09/26/16 11:00 06:59 06:37 WBC RBC Hgb Hct MCV MCH MCHC RDW Plt Count MPV Neut % (Auto) Lymph % (Auto) [place] % (Auto) Eos % (Auto) Baso % (Auto) Neut # (Auto) Lymph # (Auto) [place] # (Auto) Eos # (Auto) Baso # (Auto) Immature Gran % Nucleated RBC % Immature Gran # Nucleated RBCs # Sodium 149 H Potassium 3.6 Chloride 116 H Carbon Dioxide 23 Anion Gap 13.6 BUN 23 H Creatinine 2.30 H GFR Calculation 22 BUN/Creatinine Ratio 10.00 Glucose 87 POC Glucose 219 H 99 Calculated Osmolality 298.1 Calcium 7.6 L Magnesium 1.5 L B-Natriuretic Peptide 09/26/16 09/25/16 09/25/16 06:37 19:38 17:15 WBC 9.6 RBC 2.85 L Hgb 8.0 L Hct 24.8 L MCV 87.0 MCH 28 MCHC 32.3 RDW 20.3 H Plt Count 449 H MPV 8.6 L Neut % (Auto) 59.2 Lymph % (Auto) 24.8 [place] % (Auto) 7.0 Eos % (Auto) 8.0 Baso % (Auto) 0.4 Neut # (Auto) 5.7 Lymph # (Auto) 2.4 [place] # (Auto) 0.7 Eos # (Auto) 0.8 Baso # (Auto) 0.0 Immature Gran % 0.6 Nucleated RBC % 0.0 Immature Gran # 0.06 Nucleated RBCs # 0.00 Sodium Potassium Chloride Carbon Dioxide Anion Gap BUN Creatinine GFR Calculation BUN/Creatinine Ratio Glucose POC Glucose 257 H 279 H Calculated Osmolality Calcium Magnesium B-Natriuretic Peptide 09/25/16 09/25/16 09/25/16 13:00 11:32 07:35 WBC RBC Hgb Hct MCV MCH MCHC RDW Plt Count MPV Neut % (Auto) Lymph % (Auto) [place] % (Auto) Eos % (Auto) Baso % (Auto) Neut # (Auto) Lymph # (Auto) [place] # (Auto) Eos # (Auto) Baso # (Auto) Immature Gran % Nucleated RBC % Immature Gran # Nucleated RBCs # Sodium Potassium Chloride Carbon Dioxide Anion Gap BUN Creatinine GFR Calculation BUN/Creatinine Ratio Glucose POC Glucose 185 H 103 Calculated Osmolality Calcium Magnesium B-Natriuretic Peptide 408 H DS: Provider Date of admission: 09/18/16 20:38 Primary care physician: . No PCP Attending physician on admission: Pilo Waters MD Consults: 09/18/16 20:57 Consult to Physician [CONS] Routine Comment: Fabienne Ambrosio/severe sepsis Consulting Provider: Sophia Mejia Consult to Specialist Group: Infectious Disease When should Consulting Provider be notified: In am Person Notified: dr loving Date Notified: 09/19/16 Time Notified: 09:50 09/18/16 20:59 Consult to Physician [CONS] Routine Comment: On-call physician/acute on chronic renal failure Consulting Provider: Jesus Cavanaugh Consult to Specialist Group: Nephrology When should Consulting Provider be notified: In am Person Notified: sadia Date Notified: 09/19/16 Time Notified: 10:10 Consult Notification Comment: am labs & short pt history provided when consult called 09/19/16 14:00 Consult to Physician [CONS] Routine Comment: seizures? Consulting Provider: Karthik Deluna Person Notified: heaven barnes Date Notified: 09/19/16 Time Notified: 14:30 09/22/16 11:31 Consult to Physician [CONS] Routine Comment: bilateral hydronephrosis; pt known to you Consulting Provider: Albaro Sellers Person Notified: Dr. Sellers Date Notified: 09/24/16 Time Notified: 08:42 Consult Notification Comment: he did see over the weekend, Dr Sellers is to take over on Saturday. 09/24/16 14:56 Consult to Case Mgmt/Social Srvs [CONS] Routine Reason for Case Mgmt/Social Srvs: Rehab Consult to Occupational Therapy [CONS] Routine Reason for Occupational Therapy: Evaluate and Treat Consult to Physical Therapy [CONS] Routine Reason for Physical Therapy: Evaluate and Treat 09/25/16 09:34 Consult to Case Mgmt/Social Srvs [CONS] Routine Reason for Case Mgmt/Social Srvs: Equipment Consult Comment: [employer] 09/25/16 12:49 Consult to Sleep Center [CONS] Routine Reason for Sleep Center: Sleep Center Physician Consult Comment: untreated cori, does not like mask 09/25/16 12:52 Consult to Physician [CONS] Routine Comment: anemia on asa and plavix Consulting Provider: Angel Real When should Consulting Provider be notified: Now Person Notified: SHERLY SALAZAR Date Notified: 09/25/16 Time Notified: 13:01 Discharging clinician: Tana Echevarria MD
[2016-09-26 11:52] VITALS: BP 139/63
== END 2016-09-26 13:34 | disposition home health service (06) | DRG 871 ==
LOC: EDUNIT# → EDBD → N.ED 19:06 → SUATTDRO 20:38 → N.EDINP 20:38 → N.CC 21:16 → N.5E 09-20 16:41
PROVIDERS: ADMIT Internal Medicine Infectious Disease; ATTEND Internal Medicine